=== PATIENT | female | born 1935 | race Caucasian/White ===

== ENCOUNTER 2021-01-15 13:36 | Inpatient (IN) ==
--- NOTE | 2021-01-15 14:09 | Emergency Department Note ---
Impression & Plan Syncope, Congestive heart failure, Hypoxia, Weakness ED Provider Note Provider: Elijah Sesay MD DATE OF SERVICE: 01/15/2021 CHIEF COMPLAINT: Weakness HISTORY OF PRESENT ILLNESS: Patient is a 85-year-old female history of atrial fibrillation, valvular disease, and CHF presenting here today via ambulance from the [facility]. Patient states that she recently moved over the last 6 weeks into assisted living in [place] with her . Reports has been a bit difficult transition as they she is not used to having someone's attendance. Reports last several days she is been feeling more weak. Reports overnight developed some urinary frequency bit of burning. Denies abdominal pain, nausea or vomiting. Patient denies chest pain. Patient states compliance with her home Coumadin and digoxin. Patient denies any falls. Patient reports she is a bit weak in the car on the way driving up to the restaurant today but trying to walk up the ramp into the restaurant she felt very short of breath. EMS reported the patient had a brief period where she passed out but the patient does not remember this. Patient denies any pain currently including headache or dizziness. Upon arrival nursing noted she has been somewhat hypoxic on room air and has been maintained on several liters of oxygen which is atypical for her. Patient denies significant worsened leg swelling recently. Denies URI symptoms and states she has been vaccinated for Covid. REVIEW OF SYSTEMS: A total of 10 review of systems was obtained and negative except as stated above in the HPI. PAST MEDICAL HISTORY: As noted above MEDICATIONS: Reviewed home medications SOCIAL HISTORY: Non-smoker, lives with in assisted living PHYSICAL EXAM: GENERAL: alert and oriented in no acute distress on stretcher although somewhat fatigued in appearance Head: normocephalic and atraumatic EYES: No injection, discharge or icterus. NECK: Trachea midline. LUNGS: Airway patent. No retractions. Breath sounds diminished in the bases HEART: Irregularly irregular rate and rhythm. No chest wall tenderness ABDOMEN: Soft and non-tender, without guarding or rebound. SKIN: Acyanotic, warm, dry, without rashes EXTREMITIES: Without tenderness with 1-2+ bilateral lower extremity edema. NEUROLOGICAL: No focal deficits moving all extremities. No aphasia. No facial droop or slurred speech. EK bpm atrial fibrillation without acute ST segment elevation or depression with a left axis and a QTC of 444 CONTINUOUS CARDIAC MONITORING: was ordered and showed a heart rate of 80s to 100s bpm in atrial fibrillation Patient's laboratory studies and imaging reviewed. Differential includes Infection, dehydration, metabolic abnormality, hypo/hyperglycemia, electrolyte disturbance, anemia, hypoxia, cardiac sources, intracerebral event, toxicologic, neurologic, as well as other pathologies. IMPRESSION/MEDICAL DECISION MAKING: Patient presents complaining of weakness developing last day or 2 without URI symptoms or fever but with some urinary symptoms. Became significant short of breath and reportedly had an event where she passed out earlier. No reported significant trauma or seizure-like activity. Patient denies any pain now but states she feels generally weak. New oxygen requirement noted here with desaturations at rest into the high 80s. Patient anticoagulated Coumadin lower suspicion for PE. In rate controlled A. fib at this point. Basic labs are sent including INR and digoxin level. Chest x-ray ordered. Flu and Covid test sent. Question of some component of fluid overload may be contributing given her history versus her underlying A. fib. Patient questions if she may have a UTI and thus the UA will be important however unsure how this explains her oxygen requirement. Covid negative. Given some additional Lasix here. does relate that she had a very brief syncopal type event at the restaurant earlier but did not fall. Has a history of valvular heart disease per his report as well. Given this feel that further observation and care here at the hospital is indicated. Still awaiting urine sample. Inpatient team will follow up on this but and later reviewed by myself it does not appear that indicative of UTI. Hospitalist team contacted. DIAGNOSIS: Hypoxia, syncope, weakness DISPOSITION: Hospitalist will evaluate Patient was agreeable with this plan. Past Med/Surg History Medical History Chronic a-fib Chronic heart failure with preserved ejection fraction (HFpEF) CKD (chronic kidney disease) stage 3, GFR 30-59 ml/min HLD (hyperlipidemia) HTN (hypertension) Hypothyroidism lab[employer] current use of anticoagulant therapy Osteopenia Primary open angle glaucoma (POAG) of both eyes, mild stage Vitamin D deficiency Surgical History History of bunionectomy History of carpal tunnel surgery History of cataract extraction Family History Mother CHF (congestive heart failure) Brother Coronary heart disease Social History Smoking Status: Never smoker Hx Alcohol Use: No Hx Substance Use: No Preferred Language: Afghan Communication Ability: Effective Show Worker Required: No Beliefs That Will Affect Care: None marital status: Current Living Situation: Spouse and Other Current Living Situation Comment: Assisted Living in [place] Other Information That Helps Us Care for You: No Feels Safe at Home: Yes Safety Concerns: Feels Safe At This Time Assistive Devices Comment: Walker, but doesn't use Allergies Allergies Allergy/AdvReac Type Severity Reaction Status Date / Time No Known Drug Allergies Allergy N/A Verified 01/15/21 17:55 Home Meds Home Medications Medication Instructions Recorded Confirmed acetaminophen 650 mg tablet 650 mg PO Q4H PRN 01/15/21 01/15/21 cholecalciferol (vitamin D3) 50 50 mcg PO DAILY 01/15/21 01/15/21 mcg (2,000 unit) tablet (Vitamin D3) digoxin 125 mcg (0.125 mg) tablet 125 mcg PO MOWEFR 01/15/21 01/15/21 furosemide 40 mg tablet 40 mg PO DAILY 01/15/21 01/15/21 isosorbide mononitrate 60 mg 60 mg PO DAILY 01/15/21 01/15/21 tablet,extended release 24 hr latanoprost 0.005 % eye drops 1 drp OPHTHALMIC (EYE) PM 01/15/21 01/15/21 (Xalatan) levothyroxine 50 mcg tablet 50 mcg PO DAILY 01/15/21 01/15/21 metoprolol tartrate 50 mg tablet 50 mg PO DAILY 01/15/21 01/15/21 metoprolol tartrate 50 mg tablet 75 mg PO HS 01/15/21 01/15/21 nitroglycerin 0.4 mg sublingual 0.4 mg BUCCAL DAILY PRN 01/15/21 01/15/21 tablet potassium chloride 20 mEq 20 meq PO DAILY 01/15/21 01/15/21 tablet,extended release(part/cryst) (Klor-Con M) pyridoxine (vitamin B6) 100 mg 100 mg PO DAILY 01/15/21 01/15/21 tablet spironolactone 25 mg tablet 25 mg PO DAILY 01/15/21 01/15/21 vit C 250 mg-vit E 90 mg-zinc 40 1 tab PO AMHS 01/15/21 01/15/21 mg-copper 1 [id number] capsule (PreserVision AREDS-2) warfarin 2.5 mg tablet 1.25 mg PO MO 01/15/21 01/15/21 warfarin 2.5 mg tablet 2.5 mg PO [id number] 01/15/21 01/15/21 Results & Data (ED) Vital Signs Vital Signs - 24 hr 01/15/21 13:49 01/15/21 13:52 01/15/21 14:00 Temperature 36.4 C L Temperature Source Oral Pulse Rate 96 H 98 H 87 Pulse Rate from SpO2 Sensor 101 H 90 Pulse Rhythm Irregular Pulse Strength Normal Respiratory Rate 13 22 21 Respiratory Effort / Characteristics Spontaneous Short of Breath Respiratory Depth Normal Respiratory Pattern Regular Blood Pressure 123/91 132/92 Blood Pressure Mean 101 105 Blood Pressure Position Sitting Pulse Oximetry 4 L 98 98 Oxygen Delivery Method Nasal Cannula Oxygen Flow Rate 97 Sepsis Recent Fever Within 48 Hours No Sepsis New/Unexplained Change in Mental Status N/A Sepsis Action Taken by Nursing No Action Required Oxygen Flow Rate - Titration 2 Pulse Oximetry Post Tiitration 98 01/15/21 14:06 01/15/21 14:30 01/15/21 15:00 Temperature Temperature Source Pulse Rate 103 H 99 H 94 H Pulse Rate from SpO2 Sensor 91 H 101 H Pulse Rhythm Pulse Strength Respiratory Rate 14 23 21 Respiratory Effort / Characteristics Respiratory Depth Respiratory Pattern Blood Pressure 131/87 127/102 H Blood Pressure Mean 101 110 Blood Pressure Position Pulse Oximetry 97 99 99 Oxygen Delivery Method Nasal Cannula Oxygen Flow Rate 2 Sepsis Recent Fever Within 48 Hours Sepsis New/Unexplained Change in Mental Status Sepsis Action Taken by Nursing Oxygen Flow Rate - Titration Pulse Oximetry Post Tiitration 01/15/21 15:30 Temperature Temperature Source Pulse Rate 106 H Pulse Rate from SpO2 Sensor 107 H Pulse Rhythm Pulse Strength Respiratory Rate 23 Respiratory Effort / Characteristics Respiratory Depth Respiratory Pattern Blood Pressure 138/109 H Blood Pressure Mean 118 Blood Pressure Position Pulse Oximetry 97 Oxygen Delivery Method Oxygen Flow Rate Sepsis Recent Fever Within 48 Hours Sepsis New/Unexplained Change in Mental Status Sepsis Action Taken by Nursing Oxygen Flow Rate - Titration Pulse Oximetry Post Tiitration Laboratory Data Result diagrams: 01/15/21 13:30 01/15/21 13:30 Lab Results 01/15/21 01/15/21 01/15/21 Range/Units 13:30 13:30 13:30 WBC 7.85 (4.8-10.8) K/uL RBC 4.33 (4.2-5.4) M/uL Hgb 13.8 (12.0-16.0) g/dL Hct 42.7 (37-47) % MCV 98.6 (80-100) fL MCH 31.9 (25-34) pg MCHC 32.3 (32-36) g/dL RDW Std Deviation 58.3 H (36.4-46.3) fL RDW Coeff of Rachel 16.1 H (11.5-14.5) % Plt Count 260 (130-400) K/uL MPV 11.0 H (7.4-10.4) fL Immature Gran % (Auto) 0.6 % Neut % (Auto) 75.0 % Lymph % (Auto) 13.6 % Otero % (Auto) 9.3 % Eos % (Auto) 1.0 % Baso % (Auto) 0.5 % Neut # (Auto) 5.88 (1.4-6.5) K/uL Lymph # (Auto) 1.07 L (1.2-3.4) K/uL Otero # (Auto) 0.73 H (0.11-0.59) K/uL Eos # (Auto) 0.08 (0-0.5) K/uL Baso # (Auto) 0.04 (0-0.2) K/uL Immature Gran # (Auto) 0.05 H (0.00-0.02) K/uL PT 45.0 H (9.0-12.0) Seconds INR 5.0 H (0.9-1.1) APTT 38.2 H (21.0-31.0) Seconds PTT Ratio 1.5 Sodium 138 (136-145) mmol/L Potassium 4.9 (3.5-5.1) mmol/L Chloride 107 (98-107) mmol/L Carbon Dioxide 22 (21-32) mmol/L Anion Gap 9.0 (3-11) BUN 27 H (7-18) mg/dl Creatinine 1.30 H (0.6-1.2) mg/dl Est Cr Clr Drug Dosing 30.7 ml/min Est GFR ( Amer) 43.6 ml/min Est GFR (Non-Af Amer) 37.6 ml/min BUN/Creatinine Ratio 20.5 H (10-20) Glucose 120 H (70-99) mg/dl Calcium 10.3 H (8.5-10.1) mg/dl Magnesium 2.2 (1.8-2.4) mg/dl Total Bilirubin 0.8 (0.2-1) mg/dl AST 30 (15-37) U/L ALT 27 (12-78) U/L Alkaline Phosphatase 61 (45-117) U/L Troponin I < 0.015 (0-0.045) ng/ml NT-Pro-B Natriuret Pep (0-1800) pg/ml Total Protein 8.1 (6.4-8.2) gm/dl Albumin 3.4 (3.4-5.0) gm/dl Globulin 4.7 H (2.5-4.0) gm/dl Albumin/Globulin Ratio 0.7 L (0.9-2) Procalcitonin (0-0.5) ng/ml TSH (0.300-4.500) uIu/ml Free T4 (0.8-1.6) ng/dl Digoxin (0.8-2.0) ng/ml COVID-19 Eval Order SARS-CoV-2 (PCR) (Negative) Influ A Molecular Assay (Negative) Influ B Molecular Assay (Negative) 01/15/21 01/15/21 01/15/21 Range/Units 13:30 13:30 13:36 WBC (4.8-10.8) K/uL RBC (4.2-5.4) M/uL Hgb (12.0-16.0) g/dL Hct (37-47) % MCV (80-100) fL MCH (25-34) pg MCHC (32-36) g/dL RDW Std Deviation (36.4-46.3) fL RDW Coeff of Rachel (11.5-14.5) % Plt Count (130-400) K/uL MPV (7.4-10.4) fL Immature Gran % (Auto) % Neut % (Auto) % Lymph % (Auto) % Otero % (Auto) % Eos % (Auto) % Baso % (Auto) % Neut # (Auto) (1.4-6.5) K/uL Lymph # (Auto) (1.2-3.4) K/uL Otero # (Auto) (0.11-0.59) K/uL Eos # (Auto) (0-0.5) K/uL Baso # (Auto) (0-0.2) K/uL Immature Gran # (Auto) (0.00-0.02) K/uL PT (9.0-12.0) Seconds INR (0.9-1.1) APTT (21.0-31.0) Seconds PTT Ratio Sodium (136-145) mmol/L Potassium (3.5-5.1) mmol/L Chloride (98-107) mmol/L Carbon Dioxide (21-32) mmol/L Anion Gap (3-11) BUN (7-18) mg/dl Creatinine (0.6-1.2) mg/dl Est Cr Clr Drug Dosing ml/min Est GFR ( Amer) ml/min Est GFR (Non-Af Amer) ml/min BUN/Creatinine Ratio (10-20) Glucose (70-99) mg/dl Calcium (8.5-10.1) mg/dl Magnesium (1.8-2.4) mg/dl Total Bilirubin (0.2-1) mg/dl AST (15-37) U/L ALT (12-78) U/L Alkaline Phosphatase (45-117) U/L Troponin I (0-0.045) ng/ml NT-Pro-B Natriuret Pep 6279 H (0-1800) pg/ml Total Protein (6.4-8.2) gm/dl Albumin (3.4-5.0) gm/dl Globulin (2.5-4.0) gm/dl Albumin/Globulin Ratio (0.9-2) Procalcitonin < 0.05 (0-0.5) ng/ml TSH 7.280 H (0.300-4.500) uIu/ml Free T4 1.20 (0.8-1.6) ng/dl Digoxin 1.4 (0.8-2.0) ng/ml COVID-19 Eval Order SARS-CoV-2 (PCR) (Negative) Influ A Molecular Assay (Negative) Influ B Molecular Assay (Negative) 01/15/21 01/15/21 01/15/21 Range/Units 14:15 14:15 14:15 WBC (4.8-10.8) K/uL RBC (4.2-5.4) M/uL Hgb (12.0-16.0) g/dL Hct (37-47) % MCV (80-100) fL MCH (25-34) pg MCHC (32-36) g/dL RDW Std Deviation (36.4-46.3) fL RDW Coeff of Rachel (11.5-14.5) % Plt Count (130-400) K/uL MPV (7.4-10.4) fL Immature Gran % (Auto) % Neut % (Auto) % Lymph % (Auto) % Otero % (Auto) % Eos % (Auto) % Baso % (Auto) % Neut # (Auto) (1.4-6.5) K/uL Lymph # (Auto) (1.2-3.4) K/uL Otero # (Auto) (0.11-0.59) K/uL Eos # (Auto) (0-0.5) K/uL Baso # (Auto) (0-0.2) K/uL Immature Gran # (Auto) (0.00-0.02) K/uL PT (9.0-12.0) Seconds INR (0.9-1.1) APTT (21.0-31.0) Seconds PTT Ratio Sodium (136-145) mmol/L Potassium (3.5-5.1) mmol/L Chloride (98-107) mmol/L Carbon Dioxide (21-32) mmol/L Anion Gap (3-11) BUN (7-18) mg/dl Creatinine (0.6-1.2) mg/dl Est Cr Clr Drug Dosing ml/min Est GFR ( Amer) ml/min Est GFR (Non-Af Amer) ml/min BUN/Creatinine Ratio (10-20) Glucose (70-99) mg/dl Calcium (8.5-10.1) mg/dl Magnesium (1.8-2.4) mg/dl Total Bilirubin (0.2-1) mg/dl AST (15-37) U/L ALT (12-78) U/L Alkaline Phosphatase (45-117) U/L Troponin I (0-0.045) ng/ml NT-Pro-B Natriuret Pep (0-1800) pg/ml Total Protein (6.4-8.2) gm/dl Albumin (3.4-5.0) gm/dl Globulin (2.5-4.0) gm/dl Albumin/Globulin Ratio (0.9-2) Procalcitonin (0-0.5) ng/ml TSH (0.300-4.500) uIu/ml Free T4 (0.8-1.6) ng/dl Digoxin (0.8-2.0) ng/ml COVID-19 Eval Order Covid19 at [facility] SARS-CoV-2 (PCR) NEGATIVE (Negative) Influ A Molecular Assay Negative (Negative) Influ B Molecular Assay Negative (Negative) Administered Medications Discontinued Medications Furosemide (Furosemide 40 Mg/4 Ml Vial) 40 mg IV ONE ONE Stop: 01/15/21 15:33 Last Admin: 01/15/21 17:52 Dose: Not Given Documented by: [id number] Miscellaneous Information (Patient's Allergy Info Needs Entered) 1 ea N/A Q30M TIN Stop: 02/14/21 17:44 Last Admin: 01/15/21 17:56 Dose: 1 ea Documented by: [id number] Admin: 01/15/21 17:56 Dose: 1 ea Documented by: [id number] Imaging Data Radiologist's Impression: Chest X-Ray 01/15/21 13:54 XR chest 1V portable CLINICAL HISTORY: Dyspnea TECHNIQUE: Single frontal radiograph of the chest was obtained. Comparison: None available at the time of this dictation. FINDINGS: No lines and tubes are seen. Cardiomegaly is noted. Calcified aortic arch is seen. Prominence and indistinctness of the vasculature is seen. There are bilateral lower lobe predominant airspace opacities. No evidence of pleural effu matt or pneumothorax. IMPRESSION: 1. Cardiomegaly with mild pulmonary edema. 2. Bilateral lower lung predominant airspace opacities may represent a telectasis, pneumonia, and/or aspiration. ACT 112: Negative or not required by law. Electronically signed by: Agusto Olivares M.D. 01/15/2021 2:26 PM Discharge Plan Visit Data Chief Complaint: Shortness of Breath/Dyspnea Stated Complaint: SOB ED Provider: Elijah Sesay Discharge Problem: Syncope, Congestive heart failure, Hypoxia, Weakness Patient Disposition: Admitted As Inpatient Discharge Instructions Interventions: ED Discharge Assessment Last Done: 01/15/21 16:40
[2021-01-15 14:24] LABS: Basophils # (auto) 0.04 K/uL (0-0.2); Basophils % (auto) 0.5 %; Eosinophils # (auto) 0.08 K/uL (0-0.5); Hematocrit (blood only) 42.7 % (37-47); Hemoglobin 13.8 g/dL (12.0-16.0); Immature Granulocytes # (auto) 0.05 K/uL (0.00-0.02); Immature Granulocytes % (auto) 0.6 %; Lymphocytes # (auto) 1.07 K/uL (1.2-3.4); Lymphocytes % (auto) 13.6 %; Mean Corpuscular Hemoglobin 31.9 pg (25-34); Mean Corpuscular Hgb Conc 32.3 g/dL (32-36); Mean Corpuscular Volume 98.6 fL (80-100); Monocytes # (auto) 0.73 K/uL (0.11-0.59); Monocytes % (auto) 9.3 %; Neutrophils # (auto) 5.88 K/uL (1.4-6.5); Platelet Count 260 K/uL (130-400); RDW Coefficient of Variation 16.1 % (11.5-14.5); RDW Standard Deviation 58.3 fL (36.4-46.3); Red Blood Count 4.33 M/uL (4.2-5.4); White Blood Count 7.85 K/uL (4.8-10.8)
--- NOTE | 2021-01-15 14:28 | XRay Report ---
XR chest 1V portable CLINICAL HISTORY: Dyspnea TECHNIQUE: Single frontal radiograph of the chest was obtained. Comparison: None available at the time of this dictation. FINDINGS: No lines and tubes are seen. Cardiomegaly is noted. Calcified aortic arch is seen. Prominence and ind istinctness of the vasculature is seen. There are bilateral lower lobe predominant airspace opacities . No evidence of pleural effusion or pneumothorax. IMPRESSION: 1. Cardiomegaly with mild pulmonary edema. 2. Bilateral lower lung predominant airspace opacities may represent atelectasis, pneumonia, and/or aspiration. ACT 112: Negative or not required by law. Electronically signed by: Agusto Olivares M.D. 01/15/2021 2:26 PM
[2021-01-15 14:37] LABS: Partial Thromboplastin Ratio 1.5; Partial Thromboplastin Time 38.2 Seconds (21.0-31.0)
[2021-01-15 14:38] LABS: Alanine Aminotransferase 27 U/L (12-78); Albumin Globulin Ratio 0.7 (0.9-2); Albumin Level 3.4 gm/dl (3.4-5.0); Alkaline Phosphatase 61 U/L (45-117); Aspartate Aminotransferase 30 U/L (15-37); BUN Creatinine Ratio 20.5 (10-20); Bilirubin,Total 0.8 mg/dl (0.2-1); Blood Urea Nitrogen 27 mg/dl (7-18); Calcium 10.3 mg/dl (8.5-10.1); Carbon Dioxide 22 mmol/L (21-32); Chloride 107 mmol/L (98-107); Creatinine Clr Calc Pharmacy 30.7 ml/min; Est GFR (African American) 43.6 ml/min; Est GFR (Non-African American) 37.6 ml/min; Globulin 4.7 gm/dl (2.5-4.0); Glucose 120 mg/dl (70-99); Magnesium 2.2 mg/dl (1.8-2.4); Potassium 4.9 mmol/L (3.5-5.1); Sodium 138 mmol/L (136-145); Total Protein 8.1 gm/dl (6.4-8.2); Troponin I < 0.015 ng/ml (0-0.045)
[2021-01-15 14:54] LABS: Influenza A virus by PCR Negative (Negative); Influenza B virus by PCR Negative (Negative)
[2021-01-15] MEDS ORDERED: FUROSEMIDE 40 MG/4 ML VIAL IV ONE (15:32)
--- NOTE | 2021-01-15 15:47 | History & Physical Report ---
Date of Service January 15, 2021 Assessment & Plan (1) Weakness: (2) Hypoxia: (3) Chronic heart failure with preserved ejection fraction (HFpEF): Plan: This is an 85-year-old female who has significant past medical history of chronic HFpEF secondary to valvular heart disease, chronic atrial fibrillation anticoagulated on warfarin, severe mitral insufficiency, calcified mitral annulus and ascending aorta, HTN, HLD, hypothyroidism, CKD stage III who presents to ED with complaint of weakness and short of breath times few days. Hypoxia likely in setting of acute decompensated chronic HFpEF admit to med tele consult cardiology Lasix 40mg IV ordered in ED, in addition to 40mg oral this a.m. Give additional Lasix 40mg IV in a.m. - reasess diuretic needs in a.m. strict intake and output, pt declines huerta at this time daily weight heart healthy, low na diet last echo 05/2020 reviewed, will defer to cardiology if repeat warranted obtain probnp, procalcitonin, tsh probnp in epic 01/22 3,155; 12/22 5,148 continue metoprolol, imdur, digoxin, aldactone, KCl (4) Syncope: Plan: Does no appear to be vasovagal, pt did have have presyncopal sx ? cardiogenic vs 2/2 hypoxia in setting of exertional sob obtain CT head US b/l carotids monitor on tele for further Arrhythmia, Known A. fib obtain orthostatics (5) Supratherapeutic INR: Plan: INR 5.0, no s/sx of bleeding hold warfarin daily INR goal 2-3 (6) Chronic a-fib: Plan: rate controlled on metoprolol anticoagulated on warfarin, INR supratherapeutic at 5.0 hold warfarin (7) CKD (chronic kidney disease) stage 3, GFR 30-59 ml/min: Plan: baseline cr 1-1.3 bun/cr 27 and 1.30 monitor with diuresis (8) HTN (hypertension): Plan: bp controlled, 123/91 continue imdur, metoprolol, aldactone (9) Hypothyroidism: Plan: continue levothyroxine (10) DVT prophylaxis: Plan: on warfarin, INR supratherapeutic hold warfarin, daily INR, goal 2-3 Dispo: med tele PCP: Dr. Alvarado FULL CODE Pt was seen and examined in collaboration with Dr. Barba, please see addendum History of Present Illness Chief Complaint: Weakness x few years. Primary Care Provider: Garrett Alvarado MD This is an 85-year-old female who has significant past medical history of chronic HFpEF secondary to valvular heart disease, chronic atrial fibrillation anticoagulated on warfarin, severe mitral insufficiency, calcified mitral annulus and ascending aorta, HTN, HLD, hypothyroidism, CKD stage III who presents to ED with complaint of weakness and short of breath times few years. Her is at bedside. She states they were driving around to find a restaurant to eat at inside. Finally they landed at [employer]. She opted to walk up the ramp and as she was walking up the ramp she became very fatigued and short of breath. Her asked her if she was, "going to make it?" She then stated "no." She ended up making it to the inside of [employer] and sat on the bench. After sitting down, her sat next to her, and she became unresponsive for approximately 5 to 7 minutes per her . The states, "she was weight on my shoulder." She was responding and he felt she was gurgling. Her eyes were shut. He denies witnessing seizure like activity. T he admits she finally came to. Patient does not recall passing out and does not recall events. 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 She denies any prior history of syncope. She states she has been going downhill over the past several years due to valvular heart disease. She notes increasing shortness of breath when she exerts herself. She denies any weight gain or increased lower extremity edema. She does occasionally have orthopnea, but none recently. She admits to a dry cough but denies any fever, chills, sweats, lightheadedness, dizziness, chest pain, palpitations, nausea, vomiting, abdominal pain. Last evening she admits to symptoms concerning for urinary tract infection including urinary urgency and incontinence. She follows closely with Dr. Mendoza and was told she needed valve replacements but was not a candidate. She has been compliant with her medication including coumadin. In ED patient remained hemodynamically stable. She was mildly hypoxic requiring 2 L of oxygen. Her CBC was generally unremarkable, INR supratherapeutic at 5.0, BUN/creatinine stable at 27 and 1.30, troponin WNL and she was negative for SARS-CoV-2 and influenza. Her chest x-ray was concerning for cardiomegaly with mild pulmonary edema, bilateral lower lung predominant airspace opacities meropenem atelectasis, pneumonia and/or aspiration. 40 mg of IV Lasix was ordered and administered in ED. She did take her 40 mg oral this morning. Allergies Allergy/AdvReac Type Severity Reaction Status Date / Time ALLERGY2 Allergy Uncoded 04/16/02 18:19 Home Medications Medication Instructions Recorded Confirmed Type acetaminophen 650 mg tablet 650 mg PO Q4H PRN 01/15/21 01/15/21 History cholecalciferol (vitamin D3) 50 50 mcg PO DAILY 01/15/21 01/15/21 History mcg (2,000 unit) tablet (Vitamin D3) digoxin 125 mcg (0.125 mg) tablet 125 mcg PO MOWEFR 01/15/21 01/15/21 History furosemide 40 mg tablet 40 mg PO DAILY 01/15/21 01/15/21 History isosorbide mononitrate 60 mg 60 mg PO DAILY 01/15/21 01/15/21 History tablet,extended release 24 hr latanoprost 0.005 % eye drops 1 drp OPHTHALMIC (EYE) PM 01/15/21 01/15/21 History (Xalatan) levothyroxine 50 mcg tablet 50 mcg PO DAILY 01/15/21 01/15/21 History metoprolol tartrate 50 mg tablet 50 mg PO DAILY 01/15/21 01/15/21 History metoprolol tartrate 50 mg tablet 75 mg PO HS 01/15/21 01/15/21 History nitroglycerin 0.4 mg sublingual 0.4 mg BUCCAL DAILY PRN 01/15/21 01/15/21 History tablet potassium chloride 20 mEq 20 meq PO DAILY 01/15/21 01/15/21 History tablet,extended release(part/cryst) (Klor-Con M) pyridoxine (vitamin B6) 100 mg 100 mg PO DAILY 01/15/21 01/15/21 History tablet spironolactone 25 mg tablet 25 mg PO DAILY 01/15/21 01/15/21 History vit C 250 mg-vit E 90 mg-zinc 40 1 tab PO AMHS 01/15/21 01/15/21 History mg-copper 1 [id number] capsule (PreserVision AREDS-2) warfarin 2.5 mg tablet 1.25 mg PO MO 01/15/21 01/15/21 History warfarin 2.5 mg tablet 2.5 mg PO SUTUWETHFRSA 01/15/21 01/15/21 History Past Med/Surg History Medical History Chronic a-fib Chronic heart failure with preserved ejection fraction (HFpEF) CKD (chronic kidney disease) stage 3, GFR 30-59 ml/min HLD (hyperlipidemia) 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 (hypertension) 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 Osteopenia Primary open angle glaucoma (POAG) of both eyes, mild stage Vitamin D deficiency Surgical History History of bunionectomy History of carpal tunnel surgery History of cataract extraction Family History Mother CHF (congestive heart failure) Brother Coronary heart disease Social History Smoking Status: Never smoker Hx Alcohol Use: No Hx Substance Use: No Preferred Language: Citizen Of [place] marital status: Current Living Situation: Spouse and Personal Care Facility Feels Safe at Home: Yes Review of Systems Review of Systems: All systems reviewed & are unremarkable except as noted in HPI & below Physical Exam Physical Exam: Constitutional: WD/WN, vitals as above, NAD, sitting up in bed, pleasant, conversing easily Head: Normocephalic, Atraumatic Eyes: PERRL, conjunctivae normal, anicteric sclerae ENMT: external ear and nose normal, oropharynx normal Neck: trachea midline, no thyromegaly normal visual inspection Respiratory: normal respiratory effort, lungs clear to auscultation, no wheeze, rales, rhonchi. Normal insp/exp effort, no accessory muscle use Cardiovascular: RRR, no murmur, no edema Vessels: no JVD or carotid bruit Chest: normal inspection of chest Abdomen: normal bowel sounds, soft, nontender, no hepatosplenomegaly Musculoskeletal: no cyanosis or clubbing, extremities motor strength 5/5 Skin: no rashes, warm and dry normal turgor Neurologic: PERRL, EOMI, accommodation nl, no face palsy, no dysarthria CN's II-XI intact bilaterally and moves all extremities Psychiatric: A+Ox3, euthymic affect Lymphatic: no cervical or axillary lymphadenopathy : deferred Results & Data Results & Data ([facility]) Vital Signs (Past 12 Hours) Vital Signs Temp Pulse Resp BP Pulse Ox 01/15/21 14:06 103 H 14 97 01/15/21 13:49 36.4 C L 96 H 13 123/91 4 L Diagnostic Findings Chest X-Ray 01/15/21 13:54 XR chest 1V portable CLINICAL HISTORY: Dyspnea TECHNIQUE: Single frontal radiograph of the chest was obtained. Comparison: None available at the time of this dictation. FINDINGS: No lines and tubes are seen. Cardiomegaly is noted. Calcified aortic arch is seen. Prominence and indistinctness of the vasculature is seen. There are bilateral lower lobe predominant airspace opacities. No evidence of pleural effusion or pneumothorax. IMPRESSION: 1. Cardiomegaly with mild pulmonary edema. 2. Bilateral lower lung predominant airspace opacities may represent atelectasis, pneumonia, and/or aspiration. ACT 112: Negative or not required by law. Electronically signed by: Agusto Olivares M.D. 01/15/2021 2:26 PM Echo 05/04/2020 The qualitative LV ejection fraction is 60-64% The LV wall thickness is mildly increased (concentric). (normal). Mild tricuspid regurgitation is present. Moderate aortic valve stenosis is present. Moderate to severe mitral regurgitation is present. Two jets of MR are seen. Dilated IVC with reduced collapsability with sniff indicates an elevated right atrial pressure of 15mmHg. The estimated pulmonary artery systolic pressure is 41mm Hg. Medications Administered Furosemide 40mg IV ECG Rate (beats per minute): 96 Rhythm: atrial fibrillation Additional Comments: qtc 444ms COVID-19 Results Results COVID-19 Adm Lab Results: RBC 4.33 M/uL (4.2-5.4) 01/15/21 WBC 7.85 K/uL (4.8-10.8) 01/15/21 Hgb 13.8 g/dL (12.0-16.0) 01/15/21 Hct 42.7 % (37-47) 01/15/21 Plt Count 260 K/uL (130-400) 01/15/21 Neutrophils (%) (Auto) 75.0 % 01/15/21 Lymphocytes (%) (Auto) 13.6 % 01/15/21 Monocytes # (Auto) 0.73 K/uL (0.11-0.59) H 01/15/21 Eosinophils # (Auto) 0.08 K/uL (0-0.5) 01/15/21 Immature Granulocyte % (Auto) 0.6 % 01/15/21 Neutrophils # (Auto) 5.88 K/uL (1.4-6.5) 01/15/21 Lymphocytes # (Auto) 1.07 K/uL (1.2-3.4) L 01/15/21 Monocytes # (Auto) 0.73 K/uL (0.11-0.59) H 01/15/21 Eosinophils # (Auto) 0.08 K/uL (0-0.5) 01/15/21 Basophils # (Auto) 0.04 K/uL (0-0.2) 01/15/21 Immature Granulocyte # (Auto) 0.05 K/uL (0.00-0.02) H 01/15/21 Na 138 mmol/L (136-145) 01/15/21 K 4.9 mmol/L (3.5-5.1) 01/15/21 Cl 107 mmol/L (98-107) 01/15/21 CO2 22 mmol/L (21-32) 01/15/21 Anion Gap 9.0 (3-11) 01/15/21 BUN 27 mg/dl (7-18) H 01/15/21 Creatinine 1.30 mg/dl (0.6-1.2) H 01/15/21 BUN/Creatinine Ratio 20.5 (10-20) H 01/15/21 Glucose Level 120 mg/dl (70-99) H 01/15/21 Ca 10.3 mg/dl (8.5-10.1) H 01/15/21 Total Bilirubin 0.8 mg/dl (0.2-1) 01/15/21 AST/SGOT 30 U/L (15-37) 01/15/21 ALT/SGPT 27 U/L (12-78) 01/15/21 Alkaline Phosphatase 61 U/L (45-117) 01/15/21 Total Protein 8.1 gm/dl (6.4-8.2) 01/15/21 Albumin 3.4 gm/dl (3.4-5.0) 01/15/21 Globulin 4.7 gm/dl (2.5-4.0) H 01/15/21 Albumin/Globulin Ratio 0.7 (0.9-2) L 01/15/21 Troponin I < 0.015 ng/ml (0-0.045) 01/15/21 [id number]-Nrk-A-Type Natriuretic Pep 6279 pg/ml (0-1800) H 01/15/21 Procalcitonin < 0.05 ng/ml (0-0.5) 01/15/21 PTT 38.2 Seconds (21.0-31.0) H 01/15/21 INR 5.0 (0.9-1.1) H 01/15/21 COVID-19 PCR NEGATIVE (Negative) 01/15/21 Chest X-Ray 01/15/21 Code Status & VTE Plan Code Status FULL CODE VTE Prophylaxis Plan VTE Prophylaxis will be ordered: No Supervising Physician Co-Signing Physician Notes Attending addendum The patient was seen and examined in medical telemetry unit She is an 85-year-old female with significant past medical history including chronic heart failure with the preserved EF secondary to valvular heart disease, atrial fibrillation on Coumadin and also history of syncopal episode in the past was brought in to the ER following an episode of syncope at [facility]. She did not have any warning symptoms but she did feel shortness of breath following a car ride from [place]. Noted to have hypoxia and chest x-ray evidence of mild CHF. Has been feeling a little better since admission but he still has shortness of breath at rest On examination Anxious with mild shortness of breath Hemodynamically stable Chestminimal crackles at the bases HeartS1-S2, irregular and 3/6 ESM over apex and precordium Abdomenbenign Extremitytrace edema bilaterally Her admission labs, EKG and imaging studies reviewed Syncopal episode, cardiogenic doubt any neurologic component Has mild fluid congestion and will provide Lasix intravenously Serial cardiac enzymes and monitoring to rule out any arrhythmias and/or ACS Orthostatic pulse and blood pressure check Cardiology evaluation Agree with assessment and plan as outlined above by Disha barba
[2021-01-15 16:33] LABS: Thyroid Stimulating Hormone 7.28 uIu/ml (0.300-4.500)
[2021-01-15 16:35] LABS: Appearance Urine Clear (Clear); Bacteria Urine Automated 1+ (Negative); Bilirubin Urine Negative (Negative); Blood Urine 1+ (Negative); Color Urine Yellow; Glucose Urine UA Negative (Negative); Ketones Urine Negative (Negative); Leukocyte Esterase Urine Trace (Negative); Nitrite Urine Negative (Negative); Protein Urine 1+ (Negative); Specific Gravity Urine 1.011 (1.000-1.030); Urobilinogen Urine Negative (Negative)
[2021-01-15 16:45] LABS: T4 Free Thyroxine 1.2 ng/dl (0.8-1.6)
--- NOTE | 2021-01-15 17:03 | CT Scan Report ---
CT head/brain wo con CLINICAL HISTORY: syncope Technique: Contiguous axial CT images of the head were acquired from the base of the skull to the destinee natasha without intravenous contrast administration. Images were viewed in brain, subdural and bone [facility]. Automated dose lowering techniques and/or adjustment according to patient size were utilized for this exam. Comparison: None available at the time of this dictation. Findings: Areas of decreased attenuation are present in the periventricular and subcortical white matter bilate rally consistent with small vessel ischemic disease. Generalized cerebral atrophy with commensurate e nlargement of the ventricles, sulci, and cisterns is also present. There is no acute intracranial hem orrhage or evidence of acute territorial infarction. No shift of the midline structures, mass effect, or extra-axial abnormalities are shown. Atherosclerotic calcifications are present in the intracran ial segments of the internal carotid arteries. Imaged portions of the paranasal sinuses and mastoid air cells are clear. The orbits appear normal. There are no acute fractures of the calvaria or scalp swelling. Impression: No acute intracranial hemorrhage, no evidence of acute territorial infarction or other acute intracra nial disease process. ACT 112: Negative or not required by law. Electronically signed by: Agusto Olivares M.D. 01/15/2021 5:01 PM
[2021-01-15 17:28] LABS: RBC Urine Automated 0-4 /hpf (0-4)
[2021-01-15] MEDS ORDERED: MAGNESIUM HYDROXIDE SUSP 30 ML UDC PO PRN (17:38)
[2021-01-15] MEDS ORDERED: ONDANSETRON INJ 2 MG/ML 2 ML VIAL IV PRN (17:38)
[2021-01-15] MEDS ORDERED: POLYETHYLENE (MIRALAX) 17 GM PACK PO PRN (17:38)
[2021-01-15] MEDS ORDERED: ALUMINUM/MAGNESIUM SUSP 30 ML UDC PO PRN (17:38)
[2021-01-15] MEDS ORDERED: ACETAMINOPHEN 325 MG TAB PO PRN (17:38)
[2021-01-15] MEDS: PATIENT'S ALLERGY INFO NEEDS ENTERED SCH (17:56)
[2021-01-15] MEDS ORDERED: METOPROLOL TARTRATE 25 MG TAB PO SCH (21:00)
[2021-01-15] MEDS: LATANOPROST 0.005% OP SOLN 2.5 ML BTL OP SCH (21:22)
[2021-01-16 02:34] LABS: Hematocrit (blood only) 39.5 % (37-47); Mean Corpuscular Hemoglobin 32.4 pg (25-34); Mean Corpuscular Hgb Conc 32.9 g/dL (32-36); Mean Corpuscular Volume 98.5 fL (80-100); Mean Platelet Volume 10.9 fL (7.4-10.4); Platelet Count 240 K/uL (130-400); RDW Standard Deviation 57.7 fL (36.4-46.3); Red Blood Count 4.01 M/uL (4.2-5.4); White Blood Count 8.37 K/uL (4.8-10.8)
[2021-01-16 02:53] LABS: INR 5.1 (0.9-1.1); Prothrombin Time 45.3 Seconds (9.0-12.0)
[2021-01-16 03:02] LABS: BUN Creatinine Ratio 22.6 (10-20); Blood Urea Nitrogen 28 mg/dl (7-18); Carbon Dioxide 26 mmol/L (21-32); Chloride 106 mmol/L (98-107); Creatinine Clr Calc Pharmacy 32.7 ml/min; Est GFR (African American) 47.1 ml/min; Est GFR (Non-African American) 40.6 ml/min; Glucose 108 mg/dl (70-99); Magnesium 2.1 mg/dl (1.8-2.4); Potassium 4.3 mmol/L (3.5-5.1); Sodium 140 mmol/L (136-145)
[2021-01-16 03:06] LABS: Troponin I < 0.015 ng/ml (0-0.045)
--- NOTE | 2021-01-16 03:48 | Hospitalist Progress Note ---
Date of Service January 16, 2021 Assessment & Plan Admission and Anticipated Discharge Date Admission Date: January 15, 2021 Subjective Patient after going to bathroom and coming back to room had an episode of bradycardia and pause of 2.8sec. during the episode patient was confused, sob and had incontinence as per nursing staff. After that she was doing fine.Seen and examined patient. Currently doing fine. No dizziness, chest pain or sob or nausea. resting comfortably. Exam Benign. Holding lopressor, digoxin and transferring to tele. Will follow labs . Results & Data Results & Data ([facility]) Vital Signs (Past 12 Hours) Vital Signs Temp Pulse Pulse Resp BP BP Pulse Ox 01/16/21 02:00 36.7 C 89 16 146/105 H 98 01/15/21 23:42 87 01/15/21 23:11 36.5 C 95 H 20 121/85 90 01/15/21 21:19 106 H 129/87 01/15/21 19:45 36.3 C L 107 H 16 124/83 91 01/15/21 18:23 117 H 01/15/21 17:05 36.4 C L 104 H 16 138/68 94 01/15/21 16:30 86 23 133/96 93 01/15/21 16:00 97 H 19 133/97 100
--- NOTE | 2021-01-16 05:50 | Electrocardiogram Report ---
Test Reason : Blood Pressure : / mmHG Vent. Rate : 096 BPM Atrial Rate : 113 BPM P-R Int : 000 ms QRS Dur : 100 ms QT Int : 352 ms P-R-T Axes : 000 -38 002 degrees QTc Int : 444 ms Atrial fibrillation Left axis deviation Abnormal ECG No previous ECGs available Confirmed by Cresencio Vo ([id number]) on 01/16/2021 5:49:33 AM Referred By: REFERRED SELF Confirmed By:Cresencio Vo
[2021-01-16] MEDS: LEVOTHYROXINE SODIUM 50 MCG TABLET PO SCH (06:29)
[2021-01-16 06:37] LABS: Lyme Ab IgG w/WB Rflx Negative (Negative); Lyme Ab IgM w/WB Rflx Negative (Negative)
--- NOTE | 2021-01-16 07:05 | Ultrasound Report ---
ULTRASOUND OF THE CAROTID ARTERIES CLINICAL HISTORY: Syncope. COMPARISON STUDY: No priors. TECHNIQUE: Real-time, grayscale, and color Doppler sonography of the carotid arteries is performed. I mages are reviewed in the transverse and longitudinal planes. FINDINGS: Blood pressure in the right arm measures 134/93 and blood pressure in the left arm measures 133/81. The carotid arteries are patent bilaterally and demonstrate antegrade flow. There is mild echogenic s hadowing atherosclerotic plaque seen in the carotid bulbs. Normal doppler arterial waveforms are seen throughout. Velocity measurements are listed below. Common carotid peak systolic velocity (cm/sec): RIGHT: 35 LEFT: 49 ICA proximal peak systolic velocity (cm/sec): RIGHT: 51 LEFT: 58 ICA mid peak systolic velocity (cm/sec): RIGHT: 47 LEFT: 48 ICA distal peak systolic velocity (cm/sec): RIGHT: 32 LEFT: 43 ICA/CC peak systolic ratio: RIGHT: 1.5 LEFT: 1.2 Antegrade flow was shown in the vertebral arteries. The external carotid arteries are patent. IMPRESSION: 1. There is no sonographic evidence of hemodynamically significant stenosis in the right or left stack tid arterial system. 2. Antegrade flow is shown in the vertebral arteries. ACT 112: Negative or not required by law. Electronically signed by: Emery Falcon M.D. 01/16/2021 7:04 AM
--- NOTE | 2021-01-16 08:43 | Cardiology Consultation ---
Date of Consultation January 16, 2021 Assessment & Plan (1) Acute on chronic diastolic heart failure due to valvular disease: (2) Aortic stenosis: (3) Chronic a-fib: (4) Bradycardia: (5) Mitral regurgitation: (6) Weakness: Patient admitted for weakness, hypoxia, pulm vascular congestion, consistent with acute decompensated diastolic HF secondary to severe valvular heart disease, previously deemed not an ideal surgical candidate. Symptoms have improved with several doses of IV lasix. Continue IV lasix today. Will re-evaluate in AM. Monitor I+O's. Daily weight Fluid restriction of 1500 ml recommended. She had transient episode of bradycardia last evening, likely vasovagal while using the commode. Digoxin and metoprolol placed on hold. Will continue to hold digoxin. Given her elevated ventricular rates this morning and severe valvular heart disease, recommend resuming metoprolol tartrate 50 mg BID (Home dose was 100 mg in AM and 75 mg in PM). Titrate dose as needed/tolerated. Hold Coumadin given INR of 5.1. Daily PT/INR recommended. DVT proph - on coumadin with supratherapeutic INR. Case discussed with Dr. Mendoza. Supervising Physician Co-Signing Physician Notes Patient was seen and personally examined, chart and all records reviewed. She is an 85-year-old female with severe known valvular heart disease with heavily calcified mitral valve and severe mitral insufficiency with valve structure not amenable to surgical intervention and progressive aortic valve disease now with at least moderate aortic stenosis. Patient presents now with symptoms of acute on chronic congestive heart failure as well as marked exertional fatigue and presyncope. Aortic valve disease appears to be progressing and likely accounts for her current symptoms with exertion Plan as above treat congestive heart failure. Continue beta-iron for heart rate control while discontinuing digoxin. Suspect will need to titrate beta- iron higher Patient will need significant restriction in activity levels on discharge History of Present Illness Reason for Consultation: Possible syncope; weakness; CHF Requesting Physician: Dr. Morales Attending Physician: Dr. Mendoza History of Present Illness Patient is a complex 85 year old female, well known to [facility], following with Dr. Mendoza as an outpatient. History includes: 1. Chronic diastolic CHF secondary to valvular heart disease, NYHA class 3 2. 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 Calcified mitral valve annulus and ascending aorta 4. Hypertension 5. Hyperlipidemia 6. Permanent atrial fibrillation, [id number] score of 4 (age 3, female, HTN) , on Coumadin Over the last few weeks, patient has been treated as an outpatient for acute decompensated CHF with titration of diuretic therapy and close monitoring of her labs. Symptoms improved per last outpatient visit approx 10 days ago. She also recently had a 24 Holter monitor which demonstrated persistent afib, with elevated ventricular rates, averaging around 111 bpm. Metoprolol was increased to 100 mg in the AM and 75 mg in the PM to aid with rate control. No bradycardia noted. Patient went to dinner last night at [facility]. She notes she became acutely SOB walking across the parking lot and up the long ramp. Once she got inside, she felt very weak and SOB. She sat down on the bench to rest. Her thought she may have lost consciousness, but patient does not think this is the case. She felt very weak. She did not fall to the floor. No loss of bowel or bladder incontinence. Due to weakness and dyspnea, ambulance was summoned to the restaurant and transported to [facility]. EKG on arrival demonstrated afib, with controlled rates and no acute ST/T wave changes. Troponin was unremarkable initially, and unchanged x4. BNP was elevated. Chest xray consistent with pulm vascular congestion. She was started on IV lasix and recommended for admission. Last evening, patient was apparently using the commode and developed transient episode of bradycardia, but she denies symptoms. Digoxin and metoprolol were held by hospitalist. Per review of telemetry overnight and this morning, no recurrent kathleen events. No dizziness. HR"s now trending higher and ranging 100-130 at rest. At time of consult, patient resting in chair feeling ok. Notes SOB has improved from admission. No dizziness, syncope or near syncope. She continues to report weakness with exertion. No chest pain. Edema improved overnight. She is unaware of palpitations or tachypalpitations. Allergies Allergy/AdvReac Type Severity Reaction Status Date / Time No Known Drug Allergies Allergy N/A Verified 01/15/21 17:55 Home Medications Medication Instructions Recorded Confirmed Type acetaminophen 650 mg tablet 650 mg PO Q4H PRN 01/15/21 01/15/21 History cholecalciferol (vitamin D3) 50 50 mcg PO DAILY 01/15/21 01/15/21 History mcg (2,000 unit) tablet (Vitamin D3) digoxin 125 mcg (0.125 mg) tablet 125 mcg PO MOWEFR 01/15/21 01/15/21 History furosemide 40 mg tablet 40 mg PO DAILY 01/15/21 01/15/21 History isosorbide mononitrate 60 mg 60 mg PO DAILY 01/15/21 01/15/21 History tablet,extended release 24 hr latanoprost 0.005 % eye drops 1 drp OPHTHALMIC (EYE) PM 01/15/21 01/15/21 History (Xalatan) levothyroxine 50 mcg tablet 50 mcg PO DAILY 01/15/21 01/15/21 History metoprolol tartrate 50 mg tablet 50 mg PO DAILY 01/15/21 01/15/21 History metoprolol tartrate 50 mg tablet 75 mg PO HS 01/15/21 01/15/21 History nitroglycerin 0.4 mg sublingual 0.4 mg BUCCAL DAILY PRN 01/15/21 01/15/21 History tablet potassium chloride 20 mEq 20 meq PO DAILY 01/15/21 01/15/21 History tablet,extended release(part/cryst) (Klor-Con M) pyridoxine (vitamin B6) 100 mg 100 mg PO DAILY 01/15/21 01/15/21 History tablet spironolactone 25 mg tablet 25 mg PO DAILY 01/15/21 01/15/21 History vit C 250 mg-vit E 90 mg-zinc 40 1 tab PO AMHS 01/15/21 01/15/21 History mg-copper 1 [id number] capsule (PreserVision AREDS-2) warfarin 2.5 mg tablet 1.25 mg PO MO 01/15/21 01/15/21 History warfarin 2.5 mg tablet 2.5 mg PO [id number] 01/15/21 01/15/21 History Patient History Medical History Chronic a-fib Chronic heart failure with preserved ejection fraction (HFpEF) CKD (chronic kidney disease) stage 3, GFR 30-59 ml/min HLD (hyperlipidemia) HTN (hypertension) Hypothyroidism [facility] current use of anticoagulant therapy Osteopenia Primary open angle glaucoma (POAG) of both eyes, mild stage Vitamin D deficiency Surgical History History of bunionectomy History of carpal tunnel surgery History of cataract extraction Family History Mother CHF (congestive heart failure) Brother Coronary heart disease Social History Smoking Status: Never smoker Hx Alcohol Use: No Hx Substance Use: No Preferred Language: Luxembourgish Communication Ability: Effective Central Supply Assistant Required: No Beliefs That Will Affect Care: None marital status: Current Living Situation: Spouse and Other Current Living Situation Comment: Assisted Living in [place] Other Information That Helps Us Care for You: No Feels Safe at Home: Yes Safety Concerns: Feels Safe At This Time Assistive Devices: Walker Assistive Devices Comment: Walker, but doesn't use Results & Data ([facility]) Vital Signs (Past 12 Hours) Vital Signs Temp Pulse Pulse Resp BP Pulse Ox 01/16/21 04:00 37.1 C 104 H 16 135/93 98 01/16/21 02:00 36.7 C 89 16 146/105 H 98 01/15/21 23:42 87 01/15/21 23:11 36.5 C 95 H 20 121/85 90 01/15/21 21:19 106 H 129/87 Laboratory Results 01/16/21 01/16/21 01/16/21 Range/Units 04:46 04:46 02:17 WBC (4.8-10.8) K/uL RBC (4.2-5.4) M/uL Hgb (12.0-16.0) g/dL Hct (37-47) % MCV (80-100) fL MCH (25-34) pg MCHC (32-36) g/dL RDW Std Deviation (36.4-46.3) fL RDW Coeff of Rachel (11.5-14.5) % Plt Count (130-400) K/uL MPV (7.4-10.4) fL Immature Gran % (Auto) % Neut % (Auto) % Lymph % (Auto) % [place] % (Auto) % Eos % (Auto) % Baso % (Auto) % Neut # (Auto) (1.4-6.5) K/uL Lymph # (Auto) (1.2-3.4) K/uL [place] # (Auto) (0.11-0.59) K/uL Eos # (Auto) (0-0.5) K/uL Baso # (Auto) (0-0.2) K/uL Immature Gran # (Auto) (0.00-0.02) K/uL PT (9.0-12.0) Seconds INR (0.9-1.1) APTT (21.0-31.0) Seconds PTT Ratio Sodium 140 (136-145) mmol/L Potassium 4.3 (3.5-5.1) mmol/L Chloride 106 (98-107) mmol/L Carbon Dioxide 26 (21-32) mmol/L Anion Gap 8.0 (3-11) BUN 28 H (7-18) mg/dl Creatinine 1.22 H (0.6-1.2) mg/dl Est Cr Clr Drug Dosing 32.7 ml/min Est GFR ( Amer) 47.1 ml/min Est GFR (Non-Af Amer) 40.6 ml/min BUN/Creatinine Ratio 22.6 H (10-20) Glucose 108 H (70-99) mg/dl Calcium 10.0 (8.5-10.1) mg/dl Magnesium 2.1 (1.8-2.4) mg/dl Total Bilirubin (0.2-1) mg/dl AST (15-37) U/L ALT (12-78) U/L Alkaline Phosphatase (45-117) U/L Troponin I < 0.015 < 0.015 (0-0.045) ng/ml NT-Pro-B Natriuret Pep (0-1800) pg/ml Total Protein (6.4-8.2) gm/dl Albumin (3.4-5.0) gm/dl Globulin (2.5-4.0) gm/dl Albumin/Globulin Ratio (0.9-2) Procalcitonin (0-0.5) ng/ml TSH (0.300-4.500) uIu/ml Free T4 (0.8-1.6) ng/dl Urine Color Urine Appearance (Clear) Urine pH (4.5-7.5) Ur Specific Mccormick (1.000-1.030) Urine Protein (Negative) Urine Glucose (UA) (Negative) Urine Ketones (Negative) Urine Blood (Negative) Urine Nitrite (Negative) Urine Bilirubin (Negative) Urine Urobilinogen (Negative) Ur Leukocyte Esterase (Negative) Urine WBC (Auto) (0-5) /hpf Urine RBC (Auto) (0-4) /hpf U Hyaline Cast (Auto) (0-5) /lpf U Epithel Cells (Auto) (0-5) /lpf Urine Bacteria (Auto) (Negative) Urine Yeast Digoxin (0.8-2.0) ng/ml Lyme Disease IgG Ab Negative (Negative) Lyme Disease IgM Ab Negative (Negative) COVID-19 Eval Order SARS-CoV-2 (PCR) (Negative) Influ A Molecular Assay (Negative) Influ B Molecular Assay (Negative) 01/16/21 01/16/21 01/15/21 Range/Units 02:17 02:17 19:41 WBC 8.37 (4.8-10.8) K/uL RBC 4.01 L (4.2-5.4) M/uL Hgb 13.0 (12.0-16.0) g/dL Hct 39.5 (37-47) % MCV 98.5 (80-100) fL MCH 32.4 (25-34) pg MCHC 32.9 (32-36) g/dL RDW Std Deviation 57.7 H (36.4-46.3) fL RDW Coeff of Rachel 16.0 H (11.5-14.5) % Plt Count 240 (130-400) K/uL MPV 10.9 H (7.4-10.4) fL Immature Gran % (Auto) % Neut % (Auto) % Lymph % (Auto) % [place] % (Auto) % Eos % (Auto) % Baso % (Auto) % Neut # (Auto) (1.4-6.5) K/uL Lymph # (Auto) (1.2-3.4) K/uL [place] # (Auto) (0.11-0.59) K/uL Eos # (Auto) (0-0.5) K/uL Baso # (Auto) (0-0.2) K/uL Immature Gran # (Auto) (0.00-0.02) K/uL PT 45.3 H (9.0-12.0) Seconds INR 5.1 H (0.9-1.1) APTT (21.0-31.0) Seconds PTT Ratio Sodium (136-145) mmol/L Potassium (3.5-5.1) mmol/L Chloride (98-107) mmol/L Carbon Dioxide (21-32) mmol/L Anion Gap (3-11) BUN (7-18) mg/dl Creatinine (0.6-1.2) mg/dl Est Cr Clr Drug Dosing ml/min Est GFR ( Amer) ml/min Est GFR (Non-Af Amer) ml/min BUN/Creatinine Ratio (10-20) Glucose (70-99) mg/dl Calcium (8.5-10.1) mg/dl Magnesium (1.8-2.4) mg/dl Total Bilirubin (0.2-1) mg/dl AST (15-37) U/L ALT (12-78) U/L Alkaline Phosphatase (45-117) U/L Troponin I < 0.015 (0-0.045) ng/ml NT-Pro-B Natriuret Pep (0-1800) pg/ml Total Protein (6.4-8.2) gm/dl Albumin (3.4-5.0) gm/dl Globulin (2.5-4.0) gm/dl Albumin/Globulin Ratio (0.9-2) Procalcitonin (0-0.5) ng/ml TSH (0.300-4.500) uIu/ml Free T4 (0.8-1.6) ng/dl Urine Color Urine Appearance (Clear) Urine pH (4.5-7.5) Ur Specific Mccormick (1.000-1.030) Urine Protein (Negative) Urine Glucose (UA) (Negative) Urine Ketones (Negative) Urine Blood (Negative) Urine Nitrite (Negative) Urine Bilirubin (Negative) Urine Urobilinogen (Negative) Ur Leukocyte Esterase (Negative) Urine WBC (Auto) (0-5) /hpf Urine RBC (Auto) (0-4) /hpf U Hyaline Cast (Auto) (0-5) /lpf U Epithel Cells (Auto) (0-5) /lpf Urine Bacteria (Auto) (Negative) Urine Yeast Digoxin (0.8-2.0) ng/ml Lyme Disease IgG Ab (Negative) Lyme Disease IgM Ab (Negative) COVID-19 Eval Order SARS-CoV-2 (PCR) (Negative) Influ A Molecular Assay (Negative) Influ B Molecular Assay (Negative) 01/15/21 01/15/21 01/15/21 Range/Units 15:50 14:15 14:15 WBC (4.8-10.8) K/uL RBC (4.2-5.4) M/uL Hgb (12.0-16.0) g/dL Hct (37-47) % MCV (80-100) fL MCH (25-34) pg MCHC (32-36) g/dL RDW Std Deviation (36.4-46.3) fL RDW Coeff of Rachel (11.5-14.5) % Plt Count (130-400) K/uL MPV (7.4-10.4) fL Immature Gran % (Auto) % Neut % (Auto) % Lymph % (Auto) % [place] % (Auto) % Eos % (Auto) % Baso % (Auto) % Neut # (Auto) (1.4-6.5) K/uL Lymph # (Auto) (1.2-3.4) K/uL [place] # (Auto) (0.11-0.59) K/uL Eos # (Auto) (0-0.5) K/uL Baso # (Auto) (0-0.2) K/uL Immature Gran # (Auto) (0.00-0.02) K/uL PT (9.0-12.0) Seconds INR (0.9-1.1) APTT (21.0-31.0) Seconds PTT Ratio Sodium (136-145) mmol/L Potassium (3.5-5.1) mmol/L Chloride (98-107) mmol/L Carbon Dioxide (21-32) mmol/L Anion Gap (3-11) BUN (7-18) mg/dl Creatinine (0.6-1.2) mg/dl Est Cr Clr Drug Dosing ml/min Est GFR ( Amer) ml/min Est GFR (Non-Af Amer) ml/min BUN/Creatinine Ratio (10-20) Glucose (70-99) mg/dl Calcium (8.5-10.1) mg/dl Magnesium (1.8-2.4) mg/dl Total Bilirubin (0.2-1) mg/dl AST (15-37) U/L ALT (12-78) U/L Alkaline Phosphatase (45-117) U/L Troponin I (0-0.045) ng/ml NT-Pro-B Natriuret Pep (0-1800) pg/ml Total Protein (6.4-8.2) gm/dl Albumin (3.4-5.0) gm/dl Globulin (2.5-4.0) gm/dl Albumin/Globulin Ratio (0.9-2) Procalcitonin (0-0.5) ng/ml TSH (0.300-4.500) uIu/ml Free T4 (0.8-1.6) ng/dl Urine Color Yellow Urine Appearance Clear (Clear) Urine pH 5.0 (4.5-7.5) Ur Specific M[place]ormick 1.011 (1.000-1.030) Urine Protein 1+ H (Negative) Urine Glucose (UA) Negative (Negative) Urine Ketones Negative (Negative) Urine Blood 1+ H (Negative) Urine Nitrite Negative (Negative) Urine Bilirubin Negative (Negative) Urine Urobilinogen Negative (Negative) Ur Leukocyte Esterase Trace H (Negative) Urine WBC (Auto) 1-5 (0-5) /hpf Urine RBC (Auto) 0-4 (0-4) /hpf U Hyaline Cast (Auto) 5-10 H (0-5) /lpf U Epithel Cells (Auto) 10-20 H (0-5) /lpf Urine Bacteria (Auto) 1+ H (Negative) Urine Yeast Not Reportable Digoxin (0.8-2.0) ng/ml Lyme Disease IgG Ab (Negative) Lyme Disease IgM Ab (Negative) COVID-19 Eval Order Covid19 at [facility] SARS-CoV-2 (PCR) NEGATIVE (Negative) Influ A Molecular Assay (Negative) Influ B Molecular Assay (Negative) 01/15/21 01/15/21 01/15/21 Range/Units 14:15 13:36 13:30 WBC (4.8-10.8) K/uL RBC (4.2-5.4) M/uL Hgb (12.0-16.0) g/dL Hct (37-47) % MCV (80-100) fL MCH (25-34) pg MCHC (32-36) g/dL RDW Std Deviation (36.4-46.3) fL RDW Coeff of Rachel (11.5-14.5) % Plt Count (130-400) K/uL MPV (7.4-10.4) fL Immature Gran % (Auto) % Neut % (Auto) % Lymph % (Auto) % [place] % (Auto) % Eos % (Auto) % Baso % (Auto) % Neut # (Auto) (1.4-6.5) K/uL Lymph # (Auto) (1.2-3.4) K/uL [place] # (Auto) (0.11-0.59) K/uL Eos # (Auto) (0-0.5) K/uL Baso # (Auto) (0-0.2) K/uL Immature Gran # (Auto) (0.00-0.02) K/uL PT (9.0-12.0) Seconds INR (0.9-1.1) APTT (21.0-31.0) Seconds PTT Ratio Sodium (136-145) mmol/L Potassium (3.5-5.1) mmol/L Chloride (98-107) mmol/L Carbon Dioxide (21-32) mmol/L Anion Gap (3-11) BUN (7-18) mg/dl Creatinine (0.6-1.2) mg/dl Est Cr Clr Drug Dosing ml/min Est GFR ( Amer) ml/min Est GFR (Non-Af Amer) ml/min BUN/Creatinine Ratio (10-20) Glucose (70-99) mg/dl Calcium (8.5-10.1) mg/dl Magnesium (1.8-2.4) mg/dl Total Bilirubin (0.2-1) mg/dl AST (15-37) U/L ALT (12-78) U/L Alkaline Phosphatase (45-117) U/L Troponin I (0-0.045) ng/ml NT-Pro-B Natriuret Pep 6279 H (0-1800) pg/ml Total Protein (6.4-8.2) gm/dl Albumin (3.4-5.0) gm/dl Globulin (2.5-4.0) gm/dl Albumin/Globulin Ratio (0.9-2) Procalcitonin < 0.05 (0-0.5) ng/ml TSH 7.280 H (0.300-4.500) uIu/ml Free T4 1.20 (0.8-1.6) ng/dl Urine Color Urine Appearance (Clear) Urine pH (4.5-7.5) Ur Specific M[place] (1.000-1.030) Urine Protein (Negative) Urine Glucose (UA) (Negative) Urine Ketones (Negative) Urine Blood (Negative) Urine Nitrite (Negative) Urine Bilirubin (Negative) Urine Urobilinogen (Negative) Ur Leukocyte Esterase (Negative) Urine WBC (Auto) (0-5) /hpf Urine RBC (Auto) (0-4) /hpf U Hyaline Cast (Auto) (0-5) /lpf U Epithel Cells (Auto) (0-5) /lpf Urine Bacteria (Auto) (Negative) Urine Yeast Digoxin (0.8-2.0) ng/ml Lyme Disease IgG Ab (Negative) Lyme Disease IgM Ab (Negative) COVID-19 Eval Order SARS-CoV-2 (PCR) (Negative) Influ A Molecular Assay Negative (Negative) Influ B Molecular Assay Negative (Negative) 01/15/21 01/15/21 01/15/21 Range/Units 13:30 13:30 13:30 WBC (4.8-10.8) K/uL RBC (4.2-5.4) M/uL Hgb (12.0-16.0) g/dL Hct (37-47) % MCV (80-100) fL MCH (25-34) pg MCHC (32-36) g/dL RDW Std Deviation (36.4-46.3) fL RDW Coeff of Rachel (11.5-14.5) % Plt Count (130-400) K/uL MPV (7.4-10.4) fL Immature Gran % (Auto) % Neut % (Auto) % Lymph % (Auto) % [place] % (Auto) % Eos % (Auto) % Baso % (Auto) % Neut # (Auto) (1.4-6.5) K/uL Lymph # (Auto) (1.2-3.4) K/uL [place] # (Auto) (0.11-0.59) K/uL Eos # (Auto) (0-0.5) K/uL Baso # (Auto) (0-0.2) K/uL Immature Gran # (Auto) (0.00-0.02) K/uL PT 45.0 H (9.0-12.0) Seconds INR 5.0 H (0.9-1.1) APTT 38.2 H (21.0-31.0) Seconds PTT Ratio 1.5 Sodium 138 (136-145) mmol/L Potassium 4.9 (3.5-5.1) mmol/L Chloride 107 (98-107) mmol/L Carbon Dioxide 22 (21-32) mmol/L Anion Gap 9.0 (3-11) BUN 27 H (7-18) mg/dl Creatinine 1.30 H (0.6-1.2) mg/dl Est Cr Clr Drug Dosing 30.7 ml/min Est GFR ( Amer) 43.6 ml/min Est GFR (Non-Af Amer) 37.6 ml/min BUN/Creatinine Ratio 20.5 H (10-20) Glucose 120 H (70-99) mg/dl Calcium 10.3 H (8.5-10.1) mg/dl Magnesium 2.2 (1.8-2.4) mg/dl Total Bilirubin 0.8 (0.2-1) mg/dl AST 30 (15-37) U/L ALT 27 (12-78) U/L Alkaline Phosphatase 61 (45-117) U/L Troponin I < 0.015 (0-0.045) ng/ml NT-Pro-B Natriuret Pep (0-1800) pg/ml Total Protein 8.1 (6.4-8.2) gm/dl Albumin 3.4 (3.4-5.0) gm/dl Globulin 4.7 H (2.5-4.0) gm/dl Albumin/Globulin Ratio 0.7 L (0.9-2) Procalcitonin (0-0.5) ng/ml TSH (0.300-4.500) uIu/ml Free T4 (0.8-1.6) ng/dl Urine Color Urine Appearance (Clear) Urine pH (4.5-7.5) Ur Specific M[place] (1.000-1.030) Urine Protein (Negative) Urine Glucose (UA) (Negative) Urine Ketones (Negative) Urine Blood (Negative) Urine Nitrite (Negative) Urine Bilirubin (Negative) Urine Urobilinogen (Negative) Ur Leukocyte Esterase (Negative) Urine WBC (Auto) (0-5) /hpf Urine RBC (Auto) (0-4) /hpf U Hyaline Cast (Auto) (0-5) /lpf U Epithel Cells (Auto) (0-5) /lpf Urine Bacteria (Auto) (Negative) Urine Yeast Digoxin 1.4 (0.8-2.0) ng/ml Lyme Disease IgG Ab (Negative) Lyme Disease IgM Ab (Negative) COVID-19 Eval Order SARS-CoV-2 (PCR) (Negative) Influ A Molecular Assay (Negative) Influ B Molecular Assay (Negative) 01/15/21 Range/Units 13:30 WBC 7.85 (4.8-10.8) K/uL RBC 4.33 (4.2-5.4) M/uL Hgb 13.8 (12.0-16.0) g/dL Hct 42.7 (37-47) % MCV 98.6 (80-100) fL MCH 31.9 (25-34) pg MCHC 32.3 (32-36) g/dL RDW Std Deviation 58.3 H (36.4-46.3) fL RDW Coeff of Rachel 16.1 H (11.5-14.5) % Plt Count 260 (130-400) K/uL MPV 11.0 H (7.4-10.4) fL Immature Gran % (Auto) 0.6 % Neut % (Auto) 75.0 % Lymph % (Auto) 13.6 % [place] % (Auto) 9.3 % Eos % (Auto) 1.0 % Baso % (Auto) 0.5 % Neut # (Auto) 5.88 (1.4-6.5) K/uL Lymph # (Auto) 1.07 L (1.2-3.4) K/uL [place] # (Auto) 0.73 H (0.11-0.59) K/uL Eos # (Auto) 0.08 (0-0.5) K/uL Baso # (Auto) 0.04 (0-0.2) K/uL Immature Gran # (Auto) 0.05 H (0.00-0.02) K/uL PT (9.0-12.0) Seconds INR (0.9-1.1) APTT (21.0-31.0) Seconds PTT Ratio Sodium (136-145) mmol/L Potassium (3.5-5.1) mmol/L Chloride (98-107) mmol/L Carbon Dioxide (21-32) mmol/L Anion Gap (3-11) BUN (7-18) mg/dl Creatinine (0.6-1.2) mg/dl Est Cr Clr Drug Dosing ml/min Est GFR ( Amer) ml/min Est GFR (Non-Af Amer) ml/min BUN/Creatinine Ratio (10-20) Glucose (70-99) mg/dl Calcium (8.5-10.1) mg/dl Magnesium (1.8-2.4) mg/dl Total Bilirubin (0.2-1) mg/dl AST (15-37) U/L ALT (12-78) U/L Alkaline Phosphatase (45-117) U/L Troponin I (0-0.045) ng/ml NT-Pro-B Natriuret Pep (0-1800) pg/ml Total Protein (6.4-8.2) gm/dl Albumin (3.4-5.0) gm/dl Globulin (2.5-4.0) gm/dl Albumin/Globulin Ratio (0.9-2) Procalcitonin (0-0.5) ng/ml TSH (0.300-4.500) uIu/ml Free T4 (0.8-1.6) ng/dl Urine Color Urine Appearance (Clear) Urine pH (4.5-7.5) Ur Specific M[place] (1.000-1.030) Urine Protein (Negative) Urine Glucose (UA) (Negative) Urine Ketones (Negative) Urine Blood (Negative) Urine Nitrite (Negative) Urine Bilirubin (Negative) Urine Urobilinogen (Negative) Ur Leukocyte Esterase (Negative) Urine WBC (Auto) (0-5) /hpf Urine RBC (Auto) (0-4) /hpf U Hyaline Cast (Auto) (0-5) /lpf U Epithel Cells (Auto) (0-5) /lpf Urine Bacteria (Auto) (Negative) Urine Yeast Digoxin (0.8-2.0) ng/ml Lyme Disease IgG Ab (Negative) Lyme Disease IgM Ab (Negative) COVID-19 Eval Order SARS-CoV-2 (PCR) (Negative) Influ A Molecular Assay (Negative) Influ B Molecular Assay (Negative) Diagnostic Findings Telemetry reviewed: Atrial fibrillation with variable ventricular rates ranging 80-130 bpm. She had one transient episode of low ventricular rates last evening when she was using the commode, but no symptoms reported. HR's now trending toward tachycardic. Echo report reviewed - LV is normal in size. Moderate concentric LVH LV wall motion is normal. EF 65-70% LA is severely dilated RA is mild to moderately dilated. AV leaflets are calcified and restricted in mobility. Moderate to severe aortic stenosis Severe MAC Severe MR Mild to moderate TR RV systolic pressure is elevated at 40-50mmHg EKG on admission Atrial fibrillation at 98 bpm Left axis deviation No acute ST/T wave changes Chest xray on admission reviewed - 1. Cardiomegaly with mild pulmonary edema. 2. Bilateral lower lung predominant airspace opacities may represent atelectasis, pneumonia, and/or aspiration. Carotid duplex report reviewed on admission: IMPRESSION: 1. There is no sonographic evidence of hemodynamically significant stenosis in the right or left carotid arterial system. 2. Antegrade flow is shown in the vertebral arteries Head CT report reviewed on admission: No acute intracranial hemorrhage, no evidence of acute territorial infarction or other acute intracranial disease process. Outpatient monitor results reviewed dated 12/20/20: Dominant rhythm - atrial fibrillation 100% of the time. Minimum heart rate of 94 beats per minute, average heart rate of 111 maximum 131 beats per minute. PVCs - isolated to 2112 Symptoms - No symptoms reported Avg. Heart Rate: 111 Max. Heart Rate: 131 Min. Heart Rate: 94 Outpatient echo report reviewed dated May 2020: Interpretation Summary The qualitative LV ejection fraction is 60-64% The LV wall thickness is mildly increased (concentric). (normal). Mild tricuspid regurgitation is present. Moderate aortic valve stenosis is present. Moderate to severe mitral regurgitation is present. Two jets of MR are seen. .Dilated IVC with reduced collapsability with sniff indicates an elevated right atrial pressure of 15mmHg. The estimated pulmonary artery systolic pressure is 41mm Hg. Medications Administered Current Inpatient Medications Acetaminophen (Acetaminophen 325 Mg Tab) 650 mg PO Q4H PRN PRN Reason: Pain or Fever Stop: 02/14/21 17:37 Al Hydrox/Mg Hydrox/Simethicone (Aluminum/Magnesium Susp 30 Ml Udc) 15 ml PO Q4H PRN PRN Reason: Dyspepsia Stop: 02/14/21 17:37 Digoxin (Digoxin 0.125 Mg Tab) 0.125 mg PO MoWeFr@1600 [facility] Stop: 02/15/21 15:59 Furosemide (Furosemide 40 Mg/4 Ml Vial) 40 mg IV DAILY@0700 [facility] Stop: 02/15/21 06:59 Last Admin: 01/16/21 09:27 Dose: 40 mg Documented by: Isosorbide Mononitrate (Isosorbide [place] Extended Rel 60 Mg Tabcr) 60 mg PO DAILY [facility] Stop: 02/15/21 08:59 Last Admin: 01/16/21 09:29 Dose: 60 mg Documented by: Latanoprost (Latanoprost 0.005% Op Soln 2.5 Ml Btl) 1 drops OP PM TIN Stop: 02/14/21 20:59 Last Admin: 01/15/21 21:22 Dose: 1 drops Documented by: Levothyroxine Sodium (Levothyroxine Sodium 50 Mcg Tablet) 50 mcg PO DAILYBB [facility] Stop: 02/15/21 06:29 Last Admin: 01/16/21 06:29 Dose: 50 mcg Documented by: Magnesium Hydroxide (Magnesium Hydroxide Susp 30 Ml Udc) 30 ml PO Q12H PRN PRN Reason: Constipation Stop: 02/14/21 17:37 Metoprolol Tartrate (Metoprolol Tartrate 50 Mg Tab) 50 mg PO BID [facility] Stop: 02/15/21 09:29 Last Admin: 01/16/21 09:31 Dose: 50 mg Documented by: Multivitamins/Minerals (Cerovite Adv Formula Tab) 1 tab PO DAILY [facility] Stop: 02/15/21 08:59 Last Admin: 01/16/21 09:30 Dose: 1 tab Documented by: Ondansetron HCl (Ondansetron Inj 2 Mg/Ml 2 Ml Vial) 4 mg IV Q6H PRN PRN Reason: Nausea Stop: 02/14/21 17:37 Polyethylene Glycol (Polyethylene (Miralax) 17 Gm Pack) 17 gm PO DAILY PRN PRN Reason: Constipation Stop: 02/14/21 17:37 Potassium Chloride (Potassium Chloride Crtab 20 Meq Tabcr) 20 meq PO DAILY TIN Stop: 02/15/21 08:59 Last Admin: 01/16/21 09:30 Dose: 20 meq Documented by: Pyridoxine HCl (Pyridoxine Hcl 50 Mg Tab) 100 mg PO DAILY TIN Stop: 02/15/21 08:59 Last Admin: 01/16/21 09:30 Dose: 100 mg Documented by: Spironolactone (Spironolactone 25 Mg Tab) 25 mg PO DAILY TIN Stop: 02/15/21 08:59 Last Admin: 01/16/21 09:30 Dose: 25 mg Documented by: Vitamin D (Cholecalciferol 1,000 Units 25 Mcg Tab) 2,000 units PO DAILY TIN Stop: 02/15/21 08:59 Last Admin: 01/16/21 09:30 Dose: 2,000 units Documented by:
[2021-01-16] MEDS ORDERED: METOPROLOL TARTRATE 50 MG TAB PO SCH (09:00)
[2021-01-16] MEDS: FUROSEMIDE 40 MG/4 ML VIAL IV SCH (09:27)
[2021-01-16] MEDS: ISOSORBIDE MONO EXTENDED REL 60 MG TABCR PO SCH (09:29)
[2021-01-16] MEDS: CHOLECALCIFEROL 1,000 UNITS 25 MCG TAB PO SCH (09:30)
[2021-01-16] MEDS: POTASSIUM CHLORIDE CRTAB 20 MEQ TABCR PO SCH (09:30)
[2021-01-16] MEDS: CEROVITE ADV FORMULA TAB PO SCH (09:30)
[2021-01-16] MEDS: PYRIDOXINE HCL 50 MG TAB PO SCH (09:30)
[2021-01-16] MEDS: SPIRONOLACTONE 25 MG TAB PO SCH (09:30)
[2021-01-16] MEDS: METOPROLOL TARTRATE 50 MG TAB PO SCH ×2 (09:31→19:35)
--- NOTE | 2021-01-16 12:10 | Hospitalist Progress Note ---
Date of Service January 16, 2021 Assessment & Plan (1) Weakness: (2) Hypoxia: (3) Chronic heart failure with preserved ejection fraction (HFpEF): Plan: This is an 85-year-old female who has significant past medical history of chronic HFpEF secondary to valvular heart disease, chronic atrial fibrillation anticoagulated on warfarin, severe mitral insufficiency, calcified mitral annulus and ascending aorta, HTN, HLD, hypothyroidism, CKD stage III who presents to ED with complaint of weakness and short of breath times few days. Hypoxia likely in setting of acute decompensated chronic HFpEF Lasix 40mg IV ordered in ED, in addition to 40mg oral this a.m. Give additional Lasix 40mg IV in a.m. Strict intake and output, pt declines Gutiérrez at this time Strict intake and output chart Heart healthy, low na diet Last echo 05/2020 reviewed, will defer to cardiology if repeat warranted proBNP is more than 6000 Chest x-ray did show mild pulmonary edema Has had bradyarrhythmia last evening and beta-iron was on hold Appreciate cardiology input and recommendation-smaller doses of beta-iron have been restarted She remains stable as of this morning (4) Syncope: Plan: Does no appear to be vasovagal, pt did have have presyncopal sx Likely cardiogenic cardiogenic vs 2/2 hypoxia in setting of exertional sob Obtain CT head-negative US b/l carotids-no significant carotid stenosis (5) Supratherapeutic INR: Plan: INR 5.0, no s/sx of bleeding Hold warfarin Daily INR-remains more than 5 Goal 2-3 (6) Chronic a-fib: Plan: Rate was controlled on metoprolol Noted to have bradycardia arrhythmia last evening and beta-iron and digoxin was on hold Heart rate has been going up and beta-iron has been started with the smaller dose We will monitor (7) CKD (chronic kidney disease) stage 3, GFR 30-59 ml/min: Plan: Baseline cr 1-1.3 Bun/cr 27 and 1.30 Monitor with diuresis.-Creatinine remains stable at 1.22 (8) HTN (hypertension): Plan: BP controlled, 123/91 Continue imdur, metoprolol, aldactone (9) Hypothyroidism: Plan: Continue levothyroxine (10) DVT prophylaxis: Plan: On warfarin, INR supratherapeutic Hold warfarin, daily INR, goal 2-3 Dispo: med tele PCP: Dr. Alvarado FULL CODE Admission and Anticipated Discharge Date Admission Date: January 15, 2021 Subjective 01/16/2021 The patient was seen and examined in ICU with telemetry status She has had an episode of bradyarrhythmia after coming out of the bathroom and did not lose any loss of consciousness or fall She denies any symptoms today except weakness and tiredness and some shortness of breath She was seen by the event technician Review of Systems Review of Systems: All systems reviewed and are unremarkable except as noted below Neurologic: Alert, awake and oriented x3. Generally very weak and lethargic Physical Exam Physical Exam: Sitting on a chair without any acute distress except mild shortness of breath Constitutional: + ill appearing and average body habitus Eyes: PERRL, conjunctivae normal, anicteric sclerae ENMT: external ear and nose normal, oropharynx normal Respiratory: + respiratory distress and + cough Auscultation: lungs clear to auscultation bilaterally and + crackles (Bibasilar crackles) Cardiovascular: Rate/Rhythm: + tachycardic and + irregularly irregular Heart Sounds: normal S1, normal S2 and + murmur (3/6 ESM over precordium and apex) Extremities: + edema (Trace edema bilaterally) Gastrointestinal (Abdomen): Inspection/Auscultation: normal bowel sounds; abdomen not distended Percussion/Palpation: abdomen soft; abdomen nontender Musculoskeletal: No acute arthritis in any joint Neurologic: Alert, awake and oriented x3. Generally weak but no focal sensory or motor deficit appreciated Psychiatric: A+Ox3, euthymic affect Lymphatic: no cervical or axillary lymphadenopathy Results & Data Results & Data ([facility]) Vital Signs (Past 12 Hours) Vital Signs Temp Pulse Resp BP BP Pulse Ox 01/16/21 09:00 36.4 C L 118 H 26 H 124/85 124/85 95 01/16/21 04:00 37.1 C 104 H 16 135/93 98 01/16/21 02:00 36.7 C 89 16 146/105 H 98 Laboratory Results Short CBC 01/15/21 01/16/21 Range/Units 13:30 02:17 WBC 7.85 8.37 (4.8-10.8) K/uL Hgb 13.8 13.0 (12.0-16.0) g/dL Hct 42.7 39.5 (37-47) % Plt Count 260 240 (130-400) K/uL BMP 01/15/21 01/16/21 13:30 02:17 Sodium 138 140 Potassium 4.9 4.3 Chloride 107 106 Carbon Dioxide 22 26 BUN 27 H 28 H Creatinine 1.30 H 1.22 H Glucose 120 H 108 H Calcium 10.3 H 10.0 Cardiac Enzymes 01/15/21 01/15/21 01/16/21 Range/Units 13:30 19:41 02:17 Troponin I < 0.015 < 0.015 < 0.015 (0-0.045) ng/ml 01/16/21 Range/Units 04:46 Troponin I < 0.015 (0-0.045) ng/ml Liver Function 01/15/21 Range/Units 13:30 Total Bilirubin 0.8 (0.2-1) mg/dl AST 30 (15-37) U/L ALT 27 (12-78) U/L Alkaline Phosphatase 61 (45-117) U/L Albumin 3.4 (3.4-5.0) gm/dl Urine 01/15/21 Range/Units 15:50 Urine Color Yellow Urine Appearance Clear (Clear) Urine pH 5.0 (4.5-7.5) Ur Specific [place] 1.011 (1.000-1.030) Urine Protein 1+ H (Negative) Urine Glucose (UA) Negative (Negative) Medications Administered Current Inpatient Medications Acetaminophen (Acetaminophen 325 Mg Tab) 650 mg PO Q4H PRN PRN Reason: Pain or Fever Stop: 02/14/21 17:37 Al Hydrox/Mg Hydrox/Simethicone (Aluminum/Magnesium Susp 30 Ml Udc) 15 ml PO Q4H PRN PRN Reason: Dyspepsia Stop: 02/14/21 17:37 Digoxin (Digoxin 0.125 Mg Tab) 0.125 mg PO MoWeFr@1600 [facility] Stop: 02/15/21 15:59 Furosemide (Furosemide 40 Mg/4 Ml Vial) 40 mg IV DAILY@0700 [facility] Stop: 02/15/21 06:59 Last Admin: 01/16/21 09:27 Dose: 40 mg Documented by: Isosorbide Mononitrate (Isosorbide [place] Extended Rel 60 Mg Tabcr) 60 mg PO DAILY [facility] Stop: 02/15/21 08:59 Last Admin: 01/16/21 09:29 Dose: 60 mg Documented by: Latanoprost (Latanoprost 0.005% Op Soln 2.5 Ml Btl) 1 drops OP PM TIN Stop: 02/14/21 20:59 Last Admin: 01/15/21 21:22 Dose: 1 drops Documented by: Levothyroxine Sodium (Levothyroxine Sodium 50 Mcg Tablet) 50 mcg PO DAILYBB TIN Stop: 02/15/21 06:29 Last Admin: 01/16/21 06:29 Dose: 50 mcg Documented by: Magnesium Hydroxide (Magnesium Hydroxide Susp 30 Ml Udc) 30 ml PO Q12H PRN PRN Reason: Constipation Stop: 02/14/21 17:37 Metoprolol Tartrate (Metoprolol Tartrate 50 Mg Tab) 50 mg PO BID TIN Stop: 02/15/21 09:29 Last Admin: 01/16/21 09:31 Dose: 50 mg Documented by: Multivitamins/Minerals (Cerovite Adv Formula Tab) 1 tab PO DAILY TIN Stop: 02/15/21 08:59 Last Admin: 01/16/21 09:30 Dose: 1 tab Documented by: Ondansetron HCl (Ondansetron Inj 2 Mg/Ml 2 Ml Vial) 4 mg IV Q6H PRN PRN Reason: Nausea Stop: 02/14/21 17:37 Polyethylene Glycol (Polyethylene (Miralax) 17 Gm Pack) 17 gm PO DAILY PRN PRN Reason: Constipation Stop: 02/14/21 17:37 Potassium Chloride (Potassium Chloride Crtab 20 Meq Tabcr) 20 meq PO DAILY TIN Stop: 02/15/21 08:59 Last Admin: 01/16/21 09:30 Dose: 20 meq Documented by: Pyridoxine HCl (Pyridoxine Hcl 50 Mg Tab) 100 mg PO DAILY TIN Stop: 02/15/21 08:59 Last Admin: 01/16/21 09:30 Dose: 100 mg Documented by: Spironolactone (Spironolactone 25 Mg Tab) 25 mg PO DAILY TIN Stop: 02/15/21 08:59 Last Admin: 01/16/21 09:30 Dose: 25 mg Documented by: Vitamin D (Cholecalciferol 1,000 Units 25 Mcg Tab) 2,000 units PO DAILY TIN Stop: 02/15/21 08:59 Last Admin: 01/16/21 09:30 Dose: 2,000 units Documented by: (1) Syncope Syncope type: unspecified Qualified Code(s): R55 - Syncope and collapse
[2021-01-16] MEDS ORDERED: DIGOXIN 0.125 MG TAB PO SCH (16:00)
[2021-01-16] MEDS: LATANOPROST 0.005% OP SOLN 2.5 ML BTL OP SCH (19:35)
[2021-01-17 05:13] LABS: Basophils # (auto) 0.02 K/uL (0-0.2); Basophils % (auto) 0.2 %; Eosinophils # (auto) 0.16 K/uL (0-0.5); Hematocrit (blood only) 41.6 % (37-47); Hemoglobin 13.5 g/dL (12.0-16.0); Immature Granulocytes # (auto) 0.02 K/uL (0.00-0.02); Immature Granulocytes % (auto) 0.2 %; Lymphocytes % (auto) 13.6 %; Mean Corpuscular Hemoglobin 32.1 pg (25-34); Mean Corpuscular Hgb Conc 32.5 g/dL (32-36); Mean Platelet Volume 11.1 fL (7.4-10.4); Monocytes # (auto) 0.74 K/uL (0.11-0.59); Monocytes % (auto) 9.1 %; Neutrophils # (auto) 6.07 K/uL (1.4-6.5); Neutrophils % (auto) 74.9 %; Platelet Count 237 K/uL (130-400); RDW Coefficient of Variation 15.9 % (11.5-14.5); RDW Standard Deviation 57.8 fL (36.4-46.3); White Blood Count 8.11 K/uL (4.8-10.8)
[2021-01-17 05:52] LABS: BUN Creatinine Ratio 22.8 (10-20); Calcium 10.3 mg/dl (8.5-10.1); Creatinine Clr Calc Pharmacy 31.5 ml/min; Est GFR (African American) 44.9 ml/min; Est GFR (Non-African American) 38.7 ml/min; Magnesium 2.3 mg/dl (1.8-2.4); Potassium 4.3 mmol/L (3.5-5.1)
[2021-01-17] MEDS: LEVOTHYROXINE SODIUM 50 MCG TABLET PO SCH (05:57)
[2021-01-17] MEDS ORDERED: METOPROLOL SUCC 50MG EXT REL TAB PO SCH (09:00)
[2021-01-17] MEDS: FUROSEMIDE 40 MG/4 ML VIAL IV SCH (09:10)
[2021-01-17] MEDS: ISOSORBIDE MONO EXTENDED REL 60 MG TABCR PO SCH (09:11)
[2021-01-17] MEDS: SPIRONOLACTONE 25 MG TAB PO SCH (09:11)
[2021-01-17] MEDS: CEROVITE ADV FORMULA TAB PO SCH (09:11)
[2021-01-17] MEDS: PYRIDOXINE HCL 50 MG TAB PO SCH (09:11)
[2021-01-17] MEDS: CHOLECALCIFEROL 1,000 UNITS 25 MCG TAB PO SCH (09:11)
[2021-01-17] MEDS: POTASSIUM CHLORIDE CRTAB 20 MEQ TABCR PO SCH (09:14)
--- NOTE | 2021-01-17 10:18 | Cardiology Progress Note ---
Date of Service January 17, 2021 Assessment & Plan (1) Acute on chronic diastolic heart failure due to valvular disease: (2) Aortic stenosis: (3) Chronic a-fib: (4) Bradycardia: (5) Mitral regurgitation: (6) Weakness: Plan: Patient admitted for weakness, hypoxia, pulm vascular congestion, consistent with acute decompensated diastolic HF secondary to severe valvular heart disease, previously deemed not an ideal surgical candidate. Symptoms have improved with several doses of IV lasix. Ongoing conversational dyspnea reported. IV lasix given today. Will hold AM dose pending eval tomorrow and likely transition to oral diuretics. She normally takes Furosemide 40 mg - 1 tablet in the AM and on occasion takes additional tablet in the afternoon. Likely will discharge on 40 in AM and 40 in afternoon on //. Continue spironolactone Monitor I+O's. Daily weight Fluid restriction of 1500 ml recommended. No recurrent bradyarrhythmias. Metoprolol tartrate transitioned to metoprolol succinate this morning at 50 mg BID. Digoxin discontinued. Hold Coumadin with INR 3.0, down from 5.1. Resume tomorrow DVT proph - on Coumadin with supratherapeutic INR. Case discussed with Dr. Mendoza. Admission and Anticipated Discharge Date Admission Date: January 15, 2021 Supervising Physician Co-Signing Physician Notes Patient was seen and examined. Volume status appears euvolemic currently. Significant fluctuation heart rate still present Underlying valvular disease is significantly restricting with combination of severe mitral insufficiency and at least moderate aortic stenosis. Valvular structures not amenable to surgical intervention by past evaluation Plan we will increase metoprolol succinate to 50 mg 3 times daily for further heart rate control watching for bradycardia arrhythmias. Hold further IV furosemide today Subjective Patient resting in chair comfortably. Reports her dyspnea has improved since admission. Denies recurrent dizziness/lightheadedness/pre syncope/syncope over the last 24 hours. No significant edema. Conversational dyspnea reported and noted. HR's fluctuating on telemetry, pre medication ranging 70-130's at rest. No chest pain. Review of Systems Review of Systems: All systems reviewed & are unremarkable except as noted in HPI & below Physical Exam Constitutional: WD/WN, vitals as above well developed; no acute distress Eyes: PERRL, conjunctivae normal, anicteric sclerae Neck: trachea midline, no thyromegaly normal visual inspection Respiratory: no respiratory distress and + not able to speak in complete sentence (Conversational dyspnea noted) Auscultation: + diminished lung sounds; no crackles and no rales Cardiovascular: Rate/Rhythm: + tachycardic and + irregularly irregular Heart Sounds: + murmur (II/ systolic murmur left sternal border, radiation to neck) Gastrointestinal (Abdomen): normal bowel sounds, soft, nontender, no hepatosplenomegaly Skin: no rashes, warm and dry Neurologic: PERRL, EOMI, accommodation nl, no face palsy, no dysarthria Psychiatric: A+Ox3, euthymic affect Results & Data ([facility]) Vital Signs (Past 12 Hours) Vital Signs Temp Pulse Resp BP Pulse Ox 01/17/21 09:20 82 110/75 01/17/21 07:23 36.3 C L 94 H 20 137/103 H 93 01/17/21 04:45 36.5 C 88 20 138/98 95 Laboratory Results 01/17/21 01/17/21 01/17/21 Range/Units 04:56 04:56 04:56 WBC 8.11 (4.8-10.8) K/uL RBC 4.20 (4.2-5.4) M/uL Hgb 13.5 (12.0-16.0) g/dL Hct 41.6 (37-47) % MCV 99.0 (80-100) fL MCH 32.1 (25-34) pg MCHC 32.5 (32-36) g/dL RDW Std Deviation 57.8 H (36.4-46.3) fL RDW Coeff of Rachel 15.9 H (11.5-14.5) % Plt Count 237 (130-400) K/uL MPV 11.1 H (7.4-10.4) fL Immature Gran % (Auto) 0.2 % Neut % (Auto) 74.9 % Lymph % (Auto) 13.6 % [place] % (Auto) 9.1 % Eos % (Auto) 2.0 % Baso % (Auto) 0.2 % Neut # (Auto) 6.07 (1.4-6.5) K/uL Lymph # (Auto) 1.10 L (1.2-3.4) K/uL [place] # (Auto) 0.74 H (0.11-0.59) K/uL Eos # (Auto) 0.16 (0-0.5) K/uL Baso # (Auto) 0.02 (0-0.2) K/uL Immature Gran # (Auto) 0.02 (0.00-0.02) K/uL PT 28.0 H (9.0-12.0) Seconds INR 3.0 H (0.9-1.1) Sodium 141 (136-145) mmol/L Potassium 4.3 (3.5-5.1) mmol/L Chloride 107 (98-107) mmol/L Carbon Dioxide 29 (21-32) mmol/L Anion Gap 5.0 (3-11) BUN 29 H (7-18) mg/dl Creatinine 1.27 H (0.6-1.2) mg/dl Est Cr Clr Drug Dosing 31.5 ml/min Est GFR ( Amer) 44.9 ml/min Est GFR (Non-Af Amer) 38.7 ml/min BUN/Creatinine Ratio 22.8 H (10-20) Glucose 130 H (70-99) mg/dl Calcium 10.3 H (8.5-10.1) mg/dl Magnesium 2.3 (1.8-2.4) mg/dl Diagnostic Findings Telemetry reviewed - Afib with predominantly elevated ventricular rates ranging 120-130's, she had one episode of HR's in the 70's while I was in her room Medications Administered Current Inpatient Medications Acetaminophen (Acetaminophen 325 Mg Tab) 650 mg PO Q4H PRN PRN Reason: Pain or Fever Stop: 02/14/21 17:37 Al Hydrox/Mg Hydrox/Simethicone (Aluminum/Magnesium Susp 30 Ml Udc) 15 ml PO Q4H PRN PRN Reason: Dyspepsia Stop: 02/14/21 17:37 Digoxin (Digoxin 0.125 Mg Tab) 0.125 mg PO MoWeFr@[facility] Stop: 02/15/21 15:59 Furosemide (Furosemide 40 Mg/4 Ml Vial) 40 mg IV DAILY@[facility]00 [facility] Stop: 02/15/21 06:59 Last Admin: 01/17/21 09:10 Dose: 40 mg Documented by: Isosorbide Mononitrate (Isosorbide [place] Extended Rel 60 Mg Tabcr) 60 mg PO DAILY [facility] Stop: 02/15/21 08:59 Last Admin: 01/17/21 09:11 Dose: 60 mg Documented by: Latanoprost (Latanoprost 0.005% Op Soln 2.5 Ml Btl) 1 drops OP PM TIN Stop: 02/14/21 20:59 Last Admin: 01/16/21 19:35 Dose: 1 drops Documented by: Levothyroxine Sodium (Levothyroxine Sodium 50 Mcg Tablet) 50 mcg PO DAILYBB TIN Stop: 02/15/21 06:29 Last Admin: 01/17/21 05:57 Dose: 50 mcg Documented by: Magnesium Hydroxide (Magnesium Hydroxide Susp 30 Ml Udc) 30 ml PO Q12H PRN PRN Reason: Constipation Stop: 02/14/21 17:37 Metoprolol Succinate (Metoprolol Succ 50mg Ext Rel Tab) 50 mg PO BID TIN Stop: 02/16/21 08:59 Multivitamins/Minerals (Cerovite Adv Formula Tab) 1 tab PO DAILY TIN Stop: 02/15/21 08:59 Last Admin: 01/17/21 09:11 Dose: 1 tab Documented by: Ondansetron HCl (Ondansetron Inj 2 Mg/Ml 2 Ml Vial) 4 mg IV Q6H PRN PRN Reason: Nausea Stop: 02/14/21 17:37 Polyethylene Glycol (Polyethylene (Miralax) 17 Gm Pack) 17 gm PO DAILY PRN PRN Reason: Constipation Stop: 02/14/21 17:37 Potassium Chloride (Potassium Chloride Crtab 20 Meq Tabcr) 20 meq PO DAILY TIN Stop: 02/15/21 08:59 Last Admin: 01/17/21 09:14 Dose: 20 meq Documented by: Pyridoxine HCl (Pyridoxine Hcl 50 Mg Tab) 100 mg PO DAILY TIN Stop: 02/15/21 08:59 Last Admin: 01/17/21 09:11 Dose: 100 mg Documented by: Spironolactone (Spironolactone 25 Mg Tab) 25 mg PO DAILY TIN Stop: 02/15/21 08:59 Last Admin: 01/17/21 09:11 Dose: 25 mg Documented by: Vitamin D (Cholecalciferol 1,000 Units 25 Mcg Tab) 2,000 units PO DAILY TIN Stop: 02/15/21 08:59 Last Admin: 01/17/21 09:11 Dose: 2,000 units Documented by:
[2021-01-17] MEDS: METOPROLOL SUCC 50MG EXT REL TAB PO SCH ×2 (14:12→20:05)
--- NOTE | 2021-01-17 15:37 | Hospitalist Progress Note ---
Date of Service January 17, 2021 Assessment & Plan (1) Weakness: (2) Hypoxia: (3) Chronic heart failure with preserved ejection fraction (HFpEF): Plan: This is an 85-year-old female who has significant past medical history of chronic HFpEF secondary to valvular heart disease, chronic atrial fibrillation anticoagulated on warfarin, severe mitral insufficiency, calcified mitral annulus and ascending aorta, HTN, HLD, hypothyroidism, CKD stage III who presents to ED with complaint of weakness and short of breath times few days. Hypoxia likely in setting of acute decompensated chronic HFpEF Lasix 40mg IV ordered in ED, in addition to 40mg oral this a.m. Give additional Lasix 40mg IV in a.m. Strict intake and output, pt declines Gutiérrez at this time Strict intake and output chart Heart healthy, low na diet Last echo 05/2020 reviewed, will defer to cardiology if repeat warranted proBNP is more than 6000 Chest x-ray did show mild pulmonary edema Has had bradyarrhythmia last evening and beta-iorn was on hold Appreciate cardiology input and recommendation-smaller doses of beta-iron have been restarted Heart rate remains little elevated and the beta-iron doses have been increased since this morning She will be transferred to medical floor with telemetry and if remains stable may be discharged home tomorrow (4) Syncope: Plan: Does no appear to be vasovagal, pt did have have presyncopal sx Likely cardiogenic cardiogenic vs 2/2 hypoxia in setting of exertional sob Obtain CT head-negative US b/l carotids-no significant carotid stenosis Likely vasovagal syncope (5) Supratherapeutic INR: Plan: INR 5.0, no s/sx of bleeding Hold warfarin Daily INR-remains more than 5 Goal 2-3 INR is 3.0 today Will restart Coumadin from today (6) Chronic a-fib: Plan: Rate was controlled on metoprolol Noted to have bradycardia arrhythmia last evening and beta-iron and digoxin was on hold Heart rate has been going up and beta-iron has been started with the smaller dose Rate is not yet controlled (7) CKD (chronic kidney disease) stage 3, GFR 30-59 ml/min: Plan: Baseline cr 1-1.3 Bun/cr 27 and 1.30 Monitor with diuresis.-Creatinine remains stable at 1.22 (8) HTN (hypertension): Plan: BP controlled, 123/91 Continue imdur, metoprolol, aldactone (9) Hypothyroidism: Plan: Continue levothyroxine (10) DVT prophylaxis: Plan: On warfarin, INR supratherapeutic Hold warfarin, daily INR, goal 2-3 Dispo: med tele PCP: Dr. Alvarado FULL CODE Admission and Anticipated Discharge Date Admission Date: January 15, 2021 Subjective 01/16/2021 The patient was seen and examined in ICU with telemetry status She has had an episode of bradyarrhythmia after coming out of the bathroom and did not lose any loss of consciousness or fall She denies any symptoms today except weakness and tiredness and some shortness of breath She was seen by the accounts manager 01/17/2021 The patient was seen and examined in ICU with telemetry status She has been feeling much better today and the heart rate is still high around 110s Any symptoms Review of Systems Review of Systems: All systems reviewed and are unremarkable except as noted below Neurologic: Alert, awake and oriented x3. Generally very weak and lethargic Physical Exam Physical Exam: Sitting on a chair without any acute distress except mild shortness of breath Constitutional: + ill appearing and average body habitus Eyes: PERRL, conjunctivae normal, anicteric sclerae ENMT: external ear and nose normal, oropharynx normal Respiratory: + respiratory distress and + cough Auscultation: lungs clear to auscultation bilaterally and + crackles (Bibasilar crackles) Cardiovascular: Rate/Rhythm: + tachycardic and + irregularly irregular Heart Sounds: normal S1, normal S2 and + murmur (3/6 ESM over precordium and a pex) Extremities: + edema (Trace edema bilaterally) Gastrointestinal (Abdomen): Inspection/Auscultation: normal bowel sounds; abdomen not distended Percussion/Palpation: abdomen soft; abdomen nontender Musculoskeletal: No acute arthritis in any joint Neurologic: Alert, awake and oriented x3 Psychiatric: A+Ox3, euthymic affect Lymphatic: no cervical or axillary lymphadenopathy Results & Data Results & Data ([facility]) Vital Signs (Past 12 Hours) Vital Signs Temp Pulse Pulse Resp BP Pulse Ox 01/17/21 14:52 36.4 C L 115 H 20 105/72 95 01/17/21 11:32 36.3 C L 115 H 18 133/94 92 01/17/21 11:15 124 H 129/95 01/17/21 11:03 124 H 01/17/21 09:20 82 110/75 01/17/21 07:23 36.3 C L 94 H 20 137/103 H 93 01/17/21 04:45 36.5 C 88 20 138/98 95 Laboratory Results Short CBC 01/17/21 Range/Units 04:56 WBC 8.11 (4.8-10.8) K/uL Hgb 13.5 (12.0-16.0) g/dL Hct 41.6 (37-47) % Plt Count 237 (130-400) K/uL BMP 01/17/21 04:56 Sodium 141 Potassium 4.3 Chloride 107 Carbon Dioxide 29 BUN 29 H Creatinine 1.27 H Glucose 130 H Calcium 10.3 H Medications Administered Current Inpatient Medications Acetaminophen (Acetaminophen 325 Mg Tab) 650 mg PO Q4H PRN PRN Reason: Pain or Fever Stop: 02/14/21 17:37 Al Hydrox/Mg Hydrox/Simethicone (Aluminum/Magnesium Susp 30 Ml Udc) 15 ml PO Q4H PRN PRN Reason: Dyspepsia Stop: 02/14/21 17:37 Digoxin (Digoxin 0.125 Mg Tab) 0.125 mg PO MoWeFr@1600 [facility] Stop: 02/15/21 15:59 Furosemide (Furosemide 40 Mg/4 Ml Vial) 40 mg IV DAILY@0700 [facility] Stop: 02/15/21 06:59 Last Admin: 01/17/21 09:10 Dose: 40 mg Documented by: Isosorbide Mononitrate (Isosorbide [place] Extended Rel 60 Mg Tabcr) 60 mg PO DAILY [facility] Stop: 02/15/21 08:59 Last Admin: 01/17/21 09:11 Dose: 60 mg Documented by: Latanoprost (Latanoprost 0.005% Op Soln 2.5 Ml Btl) 1 drops OP PM [facility] Stop: 02/14/21 20:59 Last Admin: 01/16/21 19:35 Dose: 1 drops Documented by: Levothyroxine Sodium (Levothyroxine Sodium 50 Mcg Tablet) 50 mcg PO DAILYBB [facility] Stop: 02/15/21 06:29 Last Admin: 01/17/21 05:57 Dose: 50 mcg Documented by: Magnesium Hydroxide (Magnesium Hydroxide Susp 30 Ml Udc) 30 ml PO Q12H PRN PRN Reason: Constipation Stop: 02/14/21 17:37 Metoprolol Succinate (Metoprolol Succ 50mg Ext Rel Tab) 50 mg PO TID TIN Stop: 02/16/21 13:59 Last Admin: 01/17/21 14:12 Dose: 50 mg Documented by: Multivitamins/Minerals (Cerovite Adv Formula Tab) 1 tab PO DAILY TIN Stop: 02/15/21 08:59 Last Admin: 01/17/21 09:11 Dose: 1 tab Documented by: Ondansetron HCl (Ondansetron Inj 2 Mg/Ml 2 Ml Vial) 4 mg IV Q6H PRN PRN Reason: Nausea Stop: 02/14/21 17:37 Polyethylene Glycol (Polyethylene (Miralax) 17 Gm Pack) 17 gm PO DAILY PRN PRN Reason: Constipation Stop: 02/14/21 17:37 Potassium Chloride (Potassium Chloride Crtab 20 Meq Tabcr) 20 meq PO DAILY TIN Stop: 02/15/21 08:59 Last Admin: 01/17/21 09:14 Dose: 20 meq Documented by: Pyridoxine HCl (Pyridoxine Hcl 50 Mg Tab) 100 mg PO DAILY TIN Stop: 02/15/21 08:59 Last Admin: 01/17/21 09:11 Dose: 100 mg Documented by: Spironolactone (Spironolactone 25 Mg Tab) 25 mg PO DAILY TIN Stop: 02/15/21 08:59 Last Admin: 01/17/21 09:11 Dose: 25 mg Documented by: Vitamin D (Cholecalciferol 1,000 Units 25 Mcg Tab) 2,000 units PO DAILY TIN Stop: 02/15/21 08:59 Last Admin: 01/17/21 09:11 Dose: 2,000 units Documented by: (1) Syncope Syncope type: unspecified Qualified Code(s): R55 - Syncope and collapse
[2021-01-17] MEDS: WARFARIN SOD 2.5 MG TAB PO SCH (17:16)
[2021-01-17] MEDS: LATANOPROST 0.005% OP SOLN 2.5 ML BTL OP SCH (20:04)
[2021-01-18] MEDS: LEVOTHYROXINE SODIUM 50 MCG TABLET PO SCH (06:11)
[2021-01-18 07:49] LABS: BUN Creatinine Ratio 25.8 (10-20); Calcium 9.9 mg/dl (8.5-10.1); Creatinine Clr Calc Pharmacy 36.9 ml/min; Est GFR (African American) 54.6 ml/min; Est GFR (Non-African American) 47.1 ml/min
[2021-01-18] MEDS: CHOLECALCIFEROL 1,000 UNITS 25 MCG TAB PO SCH (08:45)
[2021-01-18] MEDS: ISOSORBIDE MONO EXTENDED REL 60 MG TABCR PO SCH (08:48)
[2021-01-18] MEDS: METOPROLOL SUCC 50MG EXT REL TAB PO SCH ×2 (08:49→20:59)
[2021-01-18] MEDS: POTASSIUM CHLORIDE CRTAB 20 MEQ TABCR PO SCH (08:51)
[2021-01-18] MEDS: CEROVITE ADV FORMULA TAB PO SCH (08:51)
[2021-01-18] MEDS: PYRIDOXINE HCL 50 MG TAB PO SCH (08:52)
[2021-01-18] MEDS: SPIRONOLACTONE 25 MG TAB PO SCH (08:52)
[2021-01-18] MEDS: FUROSEMIDE 40 MG/4 ML VIAL IV SCH (08:57)
[2021-01-18] MEDS ORDERED: PNEUMOCOCCAL Polysaccharide Vaccine 25mcg/0.5mL vial/Syr IM ONE (10:00)
--- NOTE | 2021-01-18 11:06 | Cardiology Progress Note ---
Date of Service January 18, 2021 Assessment & Plan (1) Acute on chronic diastolic heart failure due to valvular disease: (2) Aortic stenosis: (3) Chronic a-fib: (4) Bradycardia: (5) Mitral regurgitation: (6) Weakness: Plan: Patient admitted for weakness, hypoxia, pulm vascular congestion, consistent with acute decompensated diastolic HF secondary to severe valvular heart disease, previously deemed not an ideal surgical candidate. Symptoms have improved with several doses of IV lasix. Transition to oral furosemide today, 40 mg in AM and additional 40 mg on // afternoon. Continue spironolactone Monitor I+O's. Daily weight Fluid restriction of 1500 ml recommended. No recurrent bradyarrhythmias. Metoprolol tartrate transitioned to metoprolol succinate. Rates remain elevated. Increase metoprolol succinate to 100 mg BID. Digoxin discontinued. INR 2.0 - Resume coumadin today DVT proph - on Coumadin Case discussed with Dr. Mendoza. Admission and Anticipated Discharge Date Admission Date: January 15, 2021 Supervising Physician Co-Signing Physician Notes Patient seen and examined, chart, medications, telemetry reviewed. Plan as well outlined above. Patient with chronic severe mitral insufficiency as well as aortic stenosis and poor overall exercise and heart rate tolerance. Will titrate metoprolol succinate higher. Currently examines euvolemic Subjective Patient resting out of bed, feeling well this morning. Prior complaints of significant weakness, dyspnea improving. No edema. No recurrent dizziness, pre syncope/syncope. No chest pain. Tolerating medications. HR"s remain elevated but she is asymptomatic currently. No cough, fever, chills. Review of Systems Review of Systems: All systems reviewed & are unremarkable except as noted in HPI & below Physical Exam Constitutional: WD/WN, vitals as above well developed; no acute distress Eyes: PERRL, conjunctivae normal, anicteric sclerae Neck: trachea midline, no thyromegaly normal visual inspection Respiratory: no respiratory distress and + not able to speak in complete sentence (Conversational dyspnea noted) Auscultation: + diminished lung sounds; no crackles and no rales Cardiovascular: Rate/Rhythm: + tachycardic and + irregularly irregular Heart Sounds: + murmur (II/ systolic murmur left sternal border, radiation to neck) Gastrointestinal (Abdomen): normal bowel sounds, soft, nontender, no hepatosplenomegaly Skin: no rashes, warm and dry Neurologic: PERRL, EOMI, accommodation nl, no face palsy, no dysarthria Psychiatric: A+Ox3, euthymic affect Results & Data ([facility]) Vital Signs (Past 12 Hours) Vital Signs Temp Pulse Pulse Resp BP Pulse Ox 01/18/21 07:56 36.4 C L 99 H 16 138/81 93 01/18/21 07:30 81 01/18/21 04:34 36.5 C 112 H 18 129/86 94 01/18/21 01:52 118 H Laboratory Results 01/18/21 01/18/21 Range/Units 06:52 06:52 PT 19.0 H (9.0-12.0) Seconds INR 2.0 H (0.9-1.1) Sodium 139 (136-145) mmol/L Potassium 4.0 (3.5-5.1) mmol/L Chloride 106 (98-107) mmol/L Carbon Dioxide 28 (21-32) mmol/L Anion Gap 5.0 (3-11) BUN 28 H (7-18) mg/dl Creatinine 1.08 (0.6-1.2) mg/dl Est Cr Clr Drug Dosing 36.9 ml/min Est GFR ( Amer) 54.6 ml/min Est GFR (Non-Af Amer) 47.1 ml/min BUN/Creatinine Ratio 25.8 H (10-20) Glucose 94 (70-99) mg/dl Calcium 9.9 (8.5-10.1) mg/dl Diagnostic Findings Telemetry reviewed - Persistent/chronic afib with elevated ventricular rates ranging 110-130, occasionally in the 80's. No pauses or bradycardia Medications Administered Current Inpatient Medications Acetaminophen (Acetaminophen 325 Mg Tab) 650 mg PO Q4H PRN PRN Reason: Pain or Fever Stop: 02/14/21 17:37 Al Hydrox/Mg Hydrox/Simethicone (Aluminum/Magnesium Susp 30 Ml Udc) 15 ml PO Q4H PRN PRN Reason: Dyspepsia Stop: 02/14/21 17:37 Digoxin (Digoxin 0.125 Mg Tab) 0.125 mg PO MoWeFr@1600 [facility] Stop: 02/15/21 15:59 Furosemide (Furosemide 40 Mg/4 Ml Vial) 40 mg IV DAILY@0700 [facility] Stop: 02/15/21 06:59 Last Admin: 01/18/21 08:57 Dose: Not Given Documented by: Isosorbide Mononitrate (Isosorbide Boyd Extended Rel 60 Mg Tabcr) 60 mg PO DAILY TIN Stop: 02/15/21 08:59 Last Admin: 01/18/21 08:48 Dose: 60 mg Documented by: Latanoprost (Latanoprost 0.005% Op Soln 2.5 Ml Btl) 1 drops OP PM TIN Stop: 02/14/21 20:59 Last Admin: 01/17/21 20:04 Dose: 1 drops Documented by: Levothyroxine Sodium (Levothyroxine Sodium 50 Mcg Tablet) 50 mcg PO DAILYBB [facility] Stop: 02/15/21 06:29 Last Admin: 01/18/21 06:11 Dose: 50 mcg Documented by: Magnesium Hydroxide (Magnesium Hydroxide Susp 30 Ml Udc) 30 ml PO Q12H PRN PRN Reason: Constipation Stop: 02/14/21 17:37 Metoprolol Succinate (Metoprolol Succ 50mg Ext Rel Tab) 50 mg PO TID TIN Stop: 02/16/21 13:59 Last Admin: 01/18/21 08:49 Dose: 50 mg Documented by: Multivitamins/Minerals (Cerovite Adv Formula Tab) 1 tab PO DAILY [facility] Stop: 02/15/21 08:59 Last Admin: 01/18/21 08:51 Dose: 1 tab Documented by: Ondansetron HCl (Ondansetron Inj 2 Mg/Ml 2 Ml Vial) 4 mg IV Q6H PRN PRN Reason: Nausea Stop: 02/14/21 17:37 Polyethylene Glycol (Polyethylene (Miralax) 17 Gm Pack) 17 gm PO DAILY PRN PRN Reason: Constipation Stop: 02/14/21 17:37 Potassium Chloride (Potassium Chloride Crtab 20 Meq Tabcr) 20 meq PO DAILY TIN Stop: 02/15/21 08:59 Last Admin: 01/18/21 08:51 Dose: 20 meq Documented by: Pyridoxine HCl (Pyridoxine Hcl 50 Mg Tab) 100 mg PO DAILY TIN Stop: 02/15/21 08:59 Last Admin: 01/18/21 08:52 Dose: 100 mg Documented by: Spironolactone (Spironolactone 25 Mg Tab) 25 mg PO DAILY TIN Stop: 02/15/21 08:59 Last Admin: 01/18/21 08:52 Dose: 25 mg Documented by: Vitamin D (Cholecalciferol 1,000 Units 25 Mcg Tab) 2,000 units PO DAILY [facility] Stop: 02/15/21 08:59 Last Admin: 01/18/21 08:45 Dose: 2,000 units Documented by: Warfarin Sodium (Warfarin Sod 2.5 Mg Tab) 2.5 mg PO SuTuWeThFrSa@1600 [facility] Stop: 02/16/21 15:59 Last Admin: 01/17/21 17:16 Dose: 2.5 mg Documented by: Warfarin Sodium (Warfarin Sod 1.25 Mg Tab) 1.25 mg PO Mo@1600 [facility] Stop: 02/22/21 15:59
[2021-01-18] MEDS ORDERED: METOPROLOL SUCC 50MG EXT REL TAB PO ONE (11:30)
[2021-01-18] MEDS: FUROSEMIDE 40 MG TAB PO SCH (12:56)
[2021-01-18] MEDS ORDERED: FUROSEMIDE 40 MG TAB PO SCH (17:00)
[2021-01-18] MEDS: WARFARIN SOD 2.5 MG TAB PO SCH (17:13)
--- NOTE | 2021-01-18 20:24 | Hospitalist Progress Note ---
Date of Service January 18, 2021 Assessment & Plan (1) Acute on chronic diastolic heart failure due to valvular disease: Plan: This is an 85-year-old female who has significant past medical history of chronic HFpEF secondary to valvular heart disease, chronic atrial fibrillation anticoagulated on warfarin, severe mitral insufficiency, calcified mitral annulus and ascending aorta, HTN, HLD, hypothyroidism, CKD stage III who presents to ED with complaint of weakness and short of breath times few days. #. Weakness: #. Hypoxia: #. Chronic heart failure with preserved ejection fraction (HFpEF): Hypoxia likely in setting of acute decompensated chronic HFpEF Received IV diuresis, transition to p.o. diuresis per cardiology 01/18. Cardiology on board: Lasix 40 mg daily in the morning and additional 40 mg on Saturday afternoon. Strict I's and O's, continue spironolactone. Monitor electrolytes. Heart healthy, low na diet Last echo 05/2020 reviewed, will defer to cardiology if repeat warranted proBNP is more than 6000 Chest x-ray did show mild pulmonary edema #. Syncope: Does no appear to be vasovagal, pt did have have presyncopal sx Likely cardiogenic vs 2/2 hypoxia in setting of exertional sob CT head-negative US b/l carotids-no significant carotid stenosis Likely vasovagal syncope #. Supratherapeutic INR: Admitting INR 5.0, no s/sx of bleeding INR 2.0 today, resume Coumadin. Daily INR. Goal 2-3. #. Chronic a-fib: Rate was controlled on metoprolol Noted to have bradycardia arrhythmia last evening and beta-iron and digoxin was on hold No recurrent bradyarrhythmiametoprolol tartrate transition to metoprolol succinate per cardiology. Rate remains elevated. Metoprolol succinate increased to 100 mg twice daily. Digoxin discontinued. Rate is not yet controlled #. CKD (chronic kidney disease) stage 3, GFR 30-59 ml/min: Baseline cr 1-1.3 Bun/cr 27 and 1.30 Monitor with diuresis.-Creatinine remains stable at 1.22 Resolved #. HTN (hypertension): BP controlled Continue imdur, metoprolol, aldactone #.Hypothyroidism: Continue levothyroxine #. DVT prophylaxis: On warfarin, INR initially supratherapeutic Resumed warfarin, daily INR, goal 2-3 Dispo: med tele PCP: Dr. Alvarado FULL CODE Admission and Anticipated Discharge Date Admission Date: January 15, 2021 Subjective Patient was sitting up in chair, on room air, no acute events overnight. Patient reports eating okay. Patient denies any fever/headache/chills/sore throat/chest pain/ shortness of breath/other review of symptoms. Physical Exam Physical Exam: GENERAL: Alert and oriented x3. NAD, on RA. HEENT: No pallor, no icterus. Pupils equal, round and reactive to light. Oral mucosa moist. NECK: No JVD, no neck masses. HEART: S1 and S2 heard. IrRegular rate and rhythm. No murmur, no gallop. RESPIRATORY SYSTEM: Normal AP diameter. No accessory muscle use. No wheezing, no crackles. Decreased Breath sounds. ABDOMEN: Soft, bowel sounds present, nontender, no distention. CENTRAL NERVOUS SYSTEM: Alert and oriented x3. No facial droop. Speech is clear. Obeys simple commands. Moves extremities. EXTREMITIES: No edema, no erythema seen. Results & Data Results & Data ([facility]) Vital Signs (Past 12 Hours) Vital Signs Temp Pulse Pulse Resp BP Pulse Ox Pulse Ox 01/18/21 19:42 36.6 C 109 H 18 128/73 94 01/18/21 17:00 95 01/18/21 15:52 36.9 C 88 18 125/83 91 01/18/21 15:50 134 H 01/18/21 15:03 36.6 C 114 H 16 117/79 95 01/18/21 11:23 36.8 C 87 17 120/81 92
[2021-01-18] MEDS: LATANOPROST 0.005% OP SOLN 2.5 ML BTL OP SCH (20:59)
[2021-01-19] MEDS: LEVOTHYROXINE SODIUM 50 MCG TABLET PO SCH (06:21)
[2021-01-19 08:40] LABS: INR 1.8 (0.9-1.1); Prothrombin Time 17.6 Seconds (9.0-12.0)
[2021-01-19] MEDS: CHOLECALCIFEROL 1,000 UNITS 25 MCG TAB PO SCH (08:48)
[2021-01-19] MEDS: FUROSEMIDE 40 MG TAB PO SCH (08:48)
[2021-01-19] MEDS: ISOSORBIDE MONO EXTENDED REL 60 MG TABCR PO SCH (08:49)
[2021-01-19] MEDS: CEROVITE ADV FORMULA TAB PO SCH (08:50)
[2021-01-19] MEDS: METOPROLOL SUCC 50MG EXT REL TAB PO SCH (08:50)
[2021-01-19] MEDS: POTASSIUM CHLORIDE CRTAB 20 MEQ TABCR PO SCH (08:51)
[2021-01-19] MEDS: PYRIDOXINE HCL 50 MG TAB PO SCH (08:52)
[2021-01-19] MEDS: SPIRONOLACTONE 25 MG TAB PO SCH (08:53)
[2021-01-19 09:24] LABS: BUN Creatinine Ratio 26.8 (10-20); Calcium 9.7 mg/dl (8.5-10.1); Creatinine Clr Calc Pharmacy 36.4 ml/min; Est GFR (Non-African American) 46.6 ml/min; Potassium 3.4 mmol/L (3.5-5.1)
[2021-01-19] MEDS ORDERED: POTASSIUM CHLORIDE CRTAB 20 MEQ TABCR PO ONE (10:44)
--- NOTE | 2021-01-19 10:47 | Cardiology Progress Note ---
Date of Service January 19, 2021 Assessment & Plan (1) Acute on chronic diastolic heart failure due to valvular disease: (2) Aortic stenosis: (3) Chronic a-fib: (4) Bradycardia: (5) Mitral regurgitation: (6) Weakness: Plan: Patient admitted for weakness, hypoxia, pulm vascular congestion, consistent with acute decompensated diastolic HF secondary to severe valvular heart disease, previously deemed not an ideal surgical candidate. Symptoms have improved with several doses of IV lasix. Transition to oral furosemide 40 mg in AM and additional 40 mg on // afternoon. Continue spironolactone Continue potassium supplement with one additional dose today of 20 meq given mild hypokalemia. Daily weight at home encouraged Fluid restriction of 1500 ml recommended. No recurrent bradyarrhythmias. Metoprolol tartrate transitioned to metoprolol succinate. HR's improving with metoprolol succinate 100 mg BID Digoxin discontinued. Continue coumadin. Stable for discharge with the above medication changes. Will arrange approx 2 week hospital f/u appt with cardiology. DVT proph - on Coumadin Case discussed with Dr. Mendoza. Admission and Anticipated Discharge Date Admission Date: January 15, 2021 Supervising Physician Co-Signing Physician Notes Patient was seen and personally examined. Assessment and plan as above patient clinically improved though with ongoing chronic limitation secondary to underlying valvular heart disease. Medications adjusted as above with planned outpatient follow-up. Patient restrict activity level below symptomatic complaints Subjective Patient resting in chair. Voices no complaints. Slept well. Reports dyspnea at baseline, and improved from admission. No chest pain. No edema. No recurrent bradycardia. HR's trending down. Tolerating meds Review of Systems Review of Systems: All systems reviewed & are unremarkable except as noted in HPI & below Physical Exam Constitutional: WD/WN, vitals as above well developed; no acute distress Eyes: PERRL, conjunctivae normal, anicteric sclerae Neck: trachea midline, no thyromegaly normal visual inspection Respiratory: no respiratory distress and + not able to speak in complete sentence (Conversational dyspnea noted) Auscultation: + diminished lung sounds; no crackles and no rales Cardiovascular: Rate/Rhythm: + tachycardic and + irregularly irregular Heart Sounds: + murmur (II/ systolic murmur left sternal border, radiation to neck) Gastrointestinal (Abdomen): normal bowel sounds, soft, nontender, no hepatosplenomegaly Skin: no rashes, warm and dry Neurologic: PERRL, EOMI, accommodation nl, no face palsy, no dysarthria Psychiatric: A+Ox3, euthymic affect Results & Data ([facility]) Vital Signs (Past 12 Hours) Vital Signs Temp Pulse Resp BP BP Pulse Ox 01/19/21 08:14 36.5 C 103 H 18 125/83 90 01/19/21 04:03 36.7 C 101 H 18 116/79 96 01/19/21 00:06 36.4 C L 95 H 18 123/80 96 Laboratory Results 01/19/21 01/19/21 Range/Units 07:40 07:40 PT 17.6 H (9.0-12.0) Seconds INR 1.8 H (0.9-1.1) Sodium 140 (136-145) mmol/L Potassium 3.4 L (3.5-5.1) mmol/L Chloride 103 (98-107) mmol/L Carbon Dioxide 27 (21-32) mmol/L Anion Gap 10.0 (3-11) BUN 29 H (7-18) mg/dl Creatinine 1.09 (0.6-1.2) mg/dl Est Cr Clr Drug Dosing 36.4 ml/min Est GFR ( Amer) 54.0 ml/min Est GFR (Non-Af Amer) 46.6 ml/min BUN/Creatinine Ratio 26.8 H (10-20) Glucose 97 (70-99) mg/dl Calcium 9.7 (8.5-10.1) mg/dl Diagnostic Findings Telemetry reviewed: Afib HR's ranging 70-90 at time of visit and just after getting AM meds, other times HR's around 100-110. No bradyarrhythmias Medications Administered Current Inpatient Medications Acetaminophen (Acetaminophen 325 Mg Tab) 650 mg PO Q4H PRN PRN Reason: Pain or Fever Stop: 02/14/21 17:37 Al Hydrox/Mg Hydrox/Simethicone (Aluminum/Magnesium Susp 30 Ml Udc) 15 ml PO Q4H PRN PRN Reason: Dyspepsia Stop: 02/14/21 17:37 Digoxin (Digoxin 0.125 Mg Tab) 0.125 mg PO MoWeFr@1600 TIN Stop: 02/15/21 15:59 Furosemide (Furosemide 40 Mg Tab) 40 mg PO QAM [facility] Stop: 02/17/21 11:09 Last Admin: 01/19/21 08:48 Dose: 40 mg Documented by: Furosemide (Furosemide 40 Mg Tab) 40 mg PO MoWeFr@1700 TIN Stop: 02/17/21 16:59 Last Admin: 01/18/21 17:13 Dose: 40 mg Documented by: Isosorbide Mononitrate (Isosorbide Grainger Extended Rel 60 Mg Tabcr) 60 mg PO DAILY TIN Stop: 02/15/21 08:59 Last Admin: 01/19/21 08:49 Dose: 60 mg Documented by: Latanoprost (Latanoprost 0.005% Op Soln 2.5 Ml Btl) 1 drops OP PM TIN Stop: 02/14/21 20:59 Last Admin: 01/18/21 20:59 Dose: 1 drops Documented by: Levothyroxine Sodium (Levothyroxine Sodium 50 Mcg Tablet) 50 mcg PO DAILYBB [facility] Stop: 02/15/21 06:29 Last Admin: 01/19/21 06:21 Dose: 50 mcg Documented by: Magnesium Hydroxide (Magnesium Hydroxide Susp 30 Ml Udc) 30 ml PO Q12H PRN PRN Reason: Constipation Stop: 02/14/21 17:37 Metoprolol Succinate (Metoprolol Succ 50mg Ext Rel Tab) 100 mg PO BID TIN Stop: 02/17/21 20:59 Last Admin: 01/19/21 08:50 Dose: 100 mg Documented by: Multivitamins/Minerals (Cerovite Adv Formula Tab) 1 tab PO DAILY TIN Stop: 02/15/21 08:59 Last Admin: 01/19/21 08:50 Dose: 1 tab Documented by: Ondansetron HCl (Ondansetron Inj 2 Mg/Ml 2 Ml Vial) 4 mg IV Q6H PRN PRN Reason: Nausea Stop: 02/14/21 17:37 Polyethylene Glycol (Polyethylene (Miralax) 17 Gm Pack) 17 gm PO DAILY PRN PRN Reason: Constipation Stop: 02/14/21 17:37 Potassium Chloride (Potassium Chloride Crtab 20 Meq Tabcr) 20 meq PO DAILY TIN Stop: 02/15/21 08:59 Last Admin: 01/19/21 08:51 Dose: 20 meq Documented by: Potassium Chloride (Potassium Chloride Crtab 20 Meq Tabcr) 20 meq PO NOW ONE Stop: 01/19/21 10:45 Pyridoxine HCl (Pyridoxine Hcl 50 Mg Tab) 100 mg PO DAILY [facility] Stop: 02/15/21 08:59 Last Admin: 01/19/21 08:52 Dose: 100 mg Documented by: Spironolactone (Spironolactone 25 Mg Tab) 25 mg PO DAILY [facility] Stop: 02/15/21 08:59 Last Admin: 01/19/21 08:53 Dose: 25 mg Documented by: Vitamin D (Cholecalciferol 1,000 Units 25 Mcg Tab) 2,000 units PO DAILY [facility] Stop: 02/15/21 08:59 Last Admin: 01/19/21 08:48 Dose: 2,000 units Documented by: Warfarin Sodium (Warfarin Sod 2.5 Mg Tab) 2.5 mg PO [id number]@1600 [facility] Stop: 02/16/21 15:59 Last Admin: 01/18/21 17:13 Dose: 2.5 mg Documented by: Warfarin Sodium (Warfarin Sod 1.25 Mg Tab) 1.25 mg PO Mo@1600 [facility] Stop: 02/22/21 15:59
--- NOTE | 2021-01-19 16:38 | Discharge Summary ---
Date of Service January 19, 2021 Admission HPI Per Admitting Provider This is an 85-year-old female who has significant past medical history of chronic HFpEF secondary to valvular heart disease, chronic atrial fibrillation anticoagulated on warfarin, severe mitral insufficiency, calcified mitral annulus and ascending aorta, HTN, HLD, hypothyroidism, CKD stage III who presents to ED with complaint of weakness and short of breath times few years. Her is at bedside. She states they were driving around to find a restaurant to eat at inside. Finally they landed at [employer]. She opted to walk up the ramp and as she was walking up the ramp she became very fatigued and short of breath. Her asked her if she was, "going to make it?" She then stated "no." She ended up making it to the inside of [employer] and sat on the bench. After sitting down, her sat next to her, and she became unresponsive for approximately 5 to 7 minutes per her . The states, "she was weight on my shoulder." She was responding and he felt she was gurgling. Her eyes were shut. He denies witnessing seizure like activity. The admits she finally came to. Patient does not recall passing out and does not recall events. 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 She denies any prior history of syncope. She states she has been going downhill over the past several years due to valvular heart disease. She notes increasing shortness of breath when she exerts herself. She denies any weight gain or increased lower extremity edema. She does occasionally have orthopnea, but none recently. She admits to a dry cough but denies any fever, chills, sweats, lightheadedness, dizziness, chest pain, palpitations, nausea, vomiting, abdominal pain. Last evening she admits to symptoms concerning for urinary tract infection including urinary urgency and incontinence. She follows closely with Dr. Mendoza and was told she needed valve replacements but was not a candidate. She has been compliant with her medication including coumadin. In ED patient remained hemodynamically stable. She was mildly hypoxic requiring 2 L of oxygen. Her CBC was generally unremarkable, INR supratherapeutic at 5.0, BUN/creatinine stable at 27 and 1.30, troponin WNL and she was negative for SARS-CoV-2 and influenza. Her chest x-ray was concerning for cardiomegaly with mild pulmonary edema, bilateral lower lung predominant airspace opacities ofelia openem atelectasis, pneumonia and/or aspiration. 40 mg of IV Lasix was ordered and administered in ED. She did take her 40 mg oral this morning. Admission Exam Per Admitting Provider Constitutional: Elderly F, pale, chronically ill appearing, vitals as above, NAD, sitting up in bed, pleasant, conversing easily Head: Normocephalic, Atraumatic Eyes: PERRL, conjunctivae normal, anicteric sclerae ENMT: external ear and nose normal, oropharynx normal Neck: trachea midline, no thyromegaly normal visual inspection Respiratory: on 2L O2 via NC, normal respiratory effort, lungs clear to auscultation, no wheeze, rales, rhonchi. Normal insp/exp effort, no accessory muscle use Cardiovascular: IRR/IRR, 2/6 harsh ALISHA RUSB, b/l trace lower ext edema Vessels: no JVD or carotid bruit Chest: normal inspection of chest Abdomen: normal bowel sounds, soft, nontender, no hepatosplenomegaly Musculoskeletal: no cyanosis or clubbing, extremities motor strength 5/5 Skin: no rashes, warm and dry normal turgor Neurologic: PERRL, EOMI, accommodation nl, no face palsy, no dysarthria CN's II-XI intact bilaterally and moves all extremities Psychiatric: A+Ox3, euthymic affect Lymphatic: no cervical or axillary lymphadenopathy : deferred Principal Diagnosis Weakness Acute on chronic diastolic heart failure due to valvular disease. Syncope Discharge Exam GENERAL: Alert and oriented x3. NAD, on RA. HEENT: No pallor, no icterus. Pupils equal, round and reactive to light. Oral mucosa moist. NECK: No JVD, no neck masses. HEART: S1 and S2 heard. IrRegular rate and rhythm. No murmur, no gallop. RESPIRATORY SYSTEM: Normal AP diameter. No accessory muscle use. No wheezing, no crackles. Decreased Breath sounds. ABDOMEN: Soft, bowel sounds present, nontender, no distention. CENTRAL NERVOUS SYSTEM: Alert and oriented x3. No facial droop. Speech is clear. Obeys simple commands. Moves extremities. EXTREMITIES: No edema, no erythema seen. BLE varices seen. Discharge Data Allergies Allergy/AdvReac Type Severity Reaction Status Date / Time No Known Drug Allergies Allergy N/A Verified 01/15/21 17:55 Consultations 01/15/21 15:44 ED Decision to Admit Stat 01/15/21 15:44 Consult Cardiology Routine Ordered Studies 01/15/21 16:12 CT head/brain wo con Stat US carotid doppler BI Routine Hospital Course (1) Acute on chronic diastolic heart failure due to valvular disease: This is an 85-year-old female who has significant past medical history of chronic HFpEF secondary to valvular heart disease, chronic atrial fibrillation anticoagulated on warfarin, severe mitral insufficiency, calcified mitral annulus and ascending aorta, HTN, HLD, hypothyroidism, CKD stage III who presents to ED with complaint of weakness and short of breath times few days. She was managed with the following: #. Weakness: #. Hypoxia: #. Chronic heart failure with preserved ejection fraction (HFpEF): Hypoxia likely in setting of acute decompensated chronic HFpEF Received IV diuresis, transition to p.o. diuresis per cardiology 01/18. Cardiology on board: Lasix 40 mg daily in the morning and additional 40 mg on Saturday afternoon. Strict I's and O's, continue spironolactone. Monitor electrolytes. Patient's cardiac medications were optimized while inpatient by cardiology. #. Syncope: Does no appear to be vasovagal, pt did have have presyncopal sx Likely cardiogenic vs 2/2 hypoxia in setting of exertional sob CT head-negative US b/l carotids-no significant carotid stenosis Likely vasovagal syncope #. Supratherapeutic INR: Admitting INR 5.0, no s/sx of bleeding INR 1.8 today, c/w Coumadin. Goal 2-3. Patient took it INR in 3 days upon discharge and follow-up with Coumadin clinic for possible necessary Coumadin dose adjustment. #. Chronic a-fib: Rate was controlled on metoprolol Noted to have bradycardia arrhythmia last evening and beta-iron and digoxin was on hold No recurrent bradyarrhythmiametoprolol tartrate transition to metoprolol succinate per cardiology. Rate remains elevated. Metoprolol succinate increased to 100 mg twice daily. Digoxin discontinued. Rate is not yet controlled #. CKD (chronic kidney disease) stage 3, GFR 30-59 ml/min: Baseline cr 1-1.3 Bun/cr 27 and 1.30 Monitor with diuresis.-Creatinine remains stable at 1.22 Resolved #. HTN (hypertension): BP controlled Continue imdur, metoprolol, aldactone #.Hypothyroidism: Continue levothyroxine #. DVT prophylaxis: On warfarin, INR initially supratherapeutic Resumed warfarin, daily INR, goal 2-3 Full code Patient was discharged to [facility] with following instruction at time of discharge: Follow-up with your primary care physician within a week time. Take Lasix 40 mg in the morning and additional 40 mg on afternoon of Saturday, Saturday, Saturday. Fluid restriction of 1500 mL recommended. Your digoxin discontinued. Changes made and other cardiac medications per cardiology. Follow-up with cardiology in 2 weeks upon discharge. Get your blood work BMP done in 5 days upon discharge. INR in 3 days upon DC. Take medications as prescribed. Total Time Total Time Spent Total Time Spent (In Minutes): 40 Discharge Plan Discharge Items Patient Disposition: Personal Half-Way Reason For Visit: SYNCOPE, ACUTE DECOMPENSATION OF CHF Discharge Diagnosis: Weakness Acute on chronic diastolic heart failure due to valvular disease. Syncope Activity: Resume your previous activity Non-emergency contact: Primary Care Provider Call non-emergency contact if: you have any medication questions and your symptoms worsen Follow-up/Referrals: Garrett Alvarado MD [Primary Care Provider] - (Date & Time 01/24/2021 2:20 PM Provider Garrett Alvarado MD [facility] ) Diet: Heart Healthy Fluids: 1500ml (6 cups) Addtl Attending Provider Instructions: Follow-up with your primary care physician within a week time. Take Lasix 40 mg in the morning and additional 40 mg on afternoon of Saturday, Saturday, Saturday. Fluid restriction of 1500 mL recommended. Your digoxin discontinued. Changes made and other cardiac medications per cardiology. Follow-up with cardiology in 2 weeks upon discharge. Get your blood work BMP done in 5 days upon discharge. INR in 3 days upon DC. Take medications as prescribed. Pending Studies at Discharge: No Stand-Alone Forms: [place], Smoking Cessation Skilled Items Patient informed of condition?: Yes DNR: No Discharge Level of Care: Other Communicable Disease: No Discharge Prognosis: Stable Lines: None Urinary Catheter: No Medications and DC Order Prescriptions: New metoprolol succinate 50 mg Tablet Extended Release 24 Hr 100 mg PO BID Qty: 120 RF: 0 furosemide 40 mg Tablet 40 mg PO [id number] Qty: 30 RF: 0 furosemide 40 mg Tablet 40 mg PO QAM Qty: 30 RF: 0 Continued warfarin 2.5 mg tablet 2.5 mg PO [id number] RF: 0 acetaminophen 650 mg Tablet 650 mg PO Q4H PRN (Reason: Pain) RF: 0 spironolactone 25 mg Tablet 25 mg PO DAILY RF: 0 isosorbide mononitrate 60 mg tablet extended release 24 hr 60 mg PO DAILY RF: 0 levothyroxine 50 mcg tablet 50 mcg PO DAILY RF: 0 nitroglycerin 0.4 mg tablet, sublingual 0.4 mg buccal DAILY PRN (Reason: Chest Pain) RF: 0 pyridoxine (vitamin B6) 100 mg Tablet 100 mg PO DAILY RF: 0 cholecalciferol (vitamin D3) [Vitamin D3] 50 mcg (2,000 unit) Tablet 50 mcg PO DAILY RF: 0 PreserVision AREDS-2 250-90-40-1 mg Capsule 1 tab PO AMHS RF: 0 latanoprost [Xalatan] 0.005 % Drops 1 drp OPHTHALMIC (EYE) PM RF: 0 warfarin 2.5 mg Tablet 1.25 mg PO MO RF: 0 potassium chloride [Klor-Con M20] 20 mEq tablet,ER particles/crystals 20 meq PO DAILY RF: 0 Discontinued furosemide 40 mg tablet 40 mg PO DAILY RF: 0 metoprolol tartrate 50 mg tablet 50 mg PO DAILY RF: 0 digoxin 125 mcg (0.125 mg) tablet 125 mcg PO MOWEFR RF: 0 metoprolol tartrate 50 mg tablet 75 mg PO HS RF: 0 Discharge Orders: Discharge Order (Routine); Ordered 01/19/21 Ordered By: Glory Webber Admission Data Admit Date/Time: 01/15/21 15:44 Attending Provider: Glory Webber Admit Provider: Ranjana Morales Primary Care Provider: Garrett Alvarado I. Other Providers: Ayaz Cook ; Ranjana Morales ; Miguel Mendoza Other Interventions: Discharge Summary Assessment (RN) Last Done: 01/19/21 14:14
[2021-01-23] MEDS ORDERED: WARFARIN SOD 1.25 MG TAB PO SCH (16:00)
== END 2021-01-19 15:16 | disposition home or self-care (01) | DRG 291 ==
LOC: ED 13:36 → 2W 15:44 → SUATTDRO 15:44 → 2W 16:40 → 1E 22:14 → 2W 01-17 10:23